=== PATIENT | female | born 1950 | race Caucasian/White ===

== ENCOUNTER 2022-12-30 12:01 | Emergency (ER) | payer MEDICARE, SELFPAY ==
[2022-12-30] VITALS (33 sets, daily range): BP systolic 80–139; BP diastolic 20–122; PULSE 65–99; RESP 11–24; TEMP 36.4; O2SAT 93–100
--- NOTE | 2022-12-30 11:45 | DI.RAD_ITS ---
Exam(s) XR CHEST 2V PA LATERAL EXAM: XR CHEST 2V PA LATERAL CLINICAL HISTORY: CP TECHNIQUE: 2D digital imaging was performed of the chest. Two images were obtained. PA and lateral views were obtained. COMPARISON: CR PORTABLE CHEST ONE VIEW from 11/27/2017 FINDINGS: MEDIASTINUM: Normal. HEART: Normal. PULMONARY VASCULATURE: Normal. LUNGS: Clear. PLEURAL SPACE: No pleural effusion or pneumothorax. BONE:Within normal limits for the patient's age. OTHER FINDINGS:Normal. IMPRESSION: No acute pulmonary findings. DATA REPOSITORY: RADIATION DOSE DELIVERED:
--- NOTE | 2022-12-30 11:45 | RT.EKG_ITS ---
APPROVED REPORT Exam: Resting ECG Reason for Exam: Patient Location: E HR:77 bpm ECG Measurements Heart Rate 77 AXIS NM 179 P 46 QRSd 86 QRS 18 QT 404 T 104 QTc 457 Conclusion Sinus rhythm...normal P axis, V-rate 60- 99 Nonspecific T abnormalities, lateral leads...T <-0.10mV, I aVL V5 V6 Narrow complex normal sinus rhythm at a rate of 77. Normal axis. Intervals within normal limits. N o ST segment abnormalities. No T wave inversions. T wave flattening in aVL. No acute injury ramoneter n. No prior for comparison.
--- NOTE | 2022-12-30 11:57 | ED.GENADUL_ITS ---
Discharge Plan Disposition Patient Disposition: Home Condition: Stable Discharge Details Clinical Impression: UTI (urinary tract infection), Gastroenteritis Primary Care Provider: Peng Villegas ED Provider: Merlin Herr Home Meds and New Rx's Prescriptions: New cefpodoxime 200 mg tablet 200 mg PO BID Qty: 10 0RF Rx Instructions: must administer with a meal/food Continued donepezil 10 MG tablet 10 mg PO DAILY venlafaxine 100 MG tablet 150 mg PO DAILY Patient Comments: willian stated patient not taking gabapentin 300 MG capsule 200 mg PO BID aspirin [Aspirin Low-Strength] 81 MG tablet,chewable 81 mg PO DAILY lorazepam 1 MG tablet 1 mg PO PRN PRN Patient Comments: stated patient not taking memantine [Namenda] 10 MG tablet 10 mg PO BID alendronate 70 mg Tablet 70 mg PO DAILY chlorpheniramine-pseudoephed 4-60 mg Tablet 1 tab PO DAILY cyanocobalamin-liver extract Tablet 1 tab PO DAILY Discharge Instructions Instructions: Urinary Tract Infection in Women (DC), Gastroenteritis (DC) Additional Instructions: clear liquids, advance diet as tolerated Referrals: Peng Villegas [Primary Care Provider] - Medical Decision Making <BRENT Lundberg - Last Filed: 12/30/22 19:35> Patient is a pleasant 72-year-old female brought in via EMS with concern for nausea, vomiting and chest discomfort. Patient has baseline dementia per her EMS and they report that she is largely nonverbal. They report that her called due to her having nausea and vomiting since 7 AM and reported that she has been clutching her chest. She has been nonverbal with the during this time. Per EMS, patient was hemodynamically stable. She has not received anything as of yet for nausea or vomiting. She did not take her morning meds. Patient is able to answer yes/no and 1 answer questions for me currently. EMS did report that she has fluctuations in her mentation and ability to speak with her . She indicates the upper aspect of her chest is areas where she had discomfort but that she is not having pain now. She does report that she is nauseated. She denies pain anywhere at this time. On exam, patient appears chronically ill, frail and dehydrated. Lungs are clear, normal cardiac exam. She is denying any pain at this time. No lower extremity edema. 2+ distal pulses. Abdomen is nontender. Consider potential ACS, gastroenteritis, infectious etiology versus other. She not having any active pain to suggest dissection. She does not have history of DVT, has been mobile per her normal and is not tachycardic or hypoxic. Do not see evidence at this time for pulmonary embolism. History exam are limited secondary to patient's known Alzheimer's. Spoke with patient's to advises that her Alzheimer's has been worsening in recent months. Now she is unable to shower by herself primarily because she does not want to shower and he has to assist her with this. Otherwise, she is ambulatory and active with monitoring but no physical assistance needed. They typically reside in [place] and are planning to go back in January or February. ECG reviewed by Dr. Blankenship. No acute ischemic pattern noted. FINDINGS: Lungs: Unremarkable. No consolidation. Pleural spaces: Unremarkable. No pleural effusion. No pneumothorax. Heart/Mediastinum: Unremarkable. No cardiomegaly. Bones/joints: There are mild degenerative changes of the osseous structures. IMPRESSION: No acute cardiopulmonary disease.? No definite rib fracture or pneumothorax/pleural reaction to suggest a rib fracture. Patient is receiving fluids and antiemetic. Labs significant for leukocytosis with a white count of 23 which is significantly elevated to baseline from 2018. Patient is not anemic. Platelet count is normal. No bandemia. Will obtain a lactate. Her creatinine is elevated at 1.3, up from the patient's baseline. No significant electrolyte abnormality. Troponin within normal limits. Will obtain a urine specimen. Concern for potential UTI. With the vomiting also considered intra-abdominal infection or pyelonephritis. X-ray without evidence of pneumonia. She not had any cough or fevers. Will obtain abdominal CT, cultures and lactate. Holding off on abx until more definitive infectious source is identified. Urine concerning for infection with positive nitrite, small leuks and many bacteria. Will start IV ceftriaxone. At the end of my shift, care transitioned to Diego Herr NP with imaging and disposition pending. 1545-received signout from BRENT Lundberg. Patient pending CT imaging results otherwise noted to be in stable condition. [id number]- <Merlin Herr NP - Last Filed: 12/30/22 21:54> Patient is a pleasant 72-year-old female brought in via EMS with concern for nausea, vomiting and chest discomfort. Patient has baseline dementia per her EMS and they report that she is largely nonverbal. They report that her called due to her having nausea and vomiting since 7 AM and reported that she has been clutching her chest. She has been nonverbal with the during this time. Per EMS, patient was hemodynamically stable. She has not received anything as of yet for nausea or vomiting. She did not take her morning meds. Patient is able to answer yes/no and 1 answer questions for me currently. EMS did report that she has fluctuations in her mentation and ability to speak with her . She indicates the upper aspect of her chest is areas where she had discomfort but that she is not having pain now. She does report that she is nauseated. She denies pain anywhere at this time. On exam, patient appears chronically ill, frail and dehydrated. Lungs are clear, normal cardiac exam. She is denying any pain at this time. No lower extremity edema. 2+ distal pulses. Abdomen is nontender. Consider potential ACS, gastroenteritis, infectious etiology versus other. She not having any active pain to suggest dissection. She does not have history of DVT, has been mobile per her normal and is not tachycardic or hypoxic. Do not see evidence at this time for pulmonary embolism. History exam are limited secondary to patient's known Alzheimer's. Spoke with patient's to advises that her Alzheimer's has been worsening in recent months. Now she is unable to shower by herself primarily because she does not want to shower and he has to assist her with this. Otherwise, she is ambulatory and active with monitoring but no physical assistance needed. They typically reside in [place] and are planning to go back in January or February. ECG reviewed by Dr. Blankenship. No acute ischemic pattern noted. FINDINGS: Lungs: Unremarkable. No consolidation. Pleural spaces: Unremarkable. No pleural effusion. No pneumothorax. Heart/Mediastinum: Unremarkable. No cardiomegaly. Bones/joints: There are mild degenerative changes of the osseous structures. IMPRESSION: No acute cardiopulmonary disease.? No definite rib fracture or pneumothorax/pleural reaction to suggest a rib fracture. Patient is receiving fluids and antiemetic. Labs significant for leukocytosis with a white count of 23 which is significantly elevated to baseline from 2018. Patient is not anemic. Platelet count is normal. No bandemia. Will obtain a lactate. Her creatinine is elevated at 1.3, up from the patient's baseline. No significant electrolyte abnormality. Troponin within normal limits. Will obtain a urine specimen. Concern for potential UTI. With the vomiting also considered intra-abdominal infection or pyelonephritis. X-ray without evidence of pneumonia. She not had any cough or fevers. Will obtain abdominal CT, cultures and lactate. Holding off on abx until more definitive infectious source is identified. Urine concerning for infection with positive nitrite, small leuks and many bacteria. Will start IV ceftriaxone. At the end of my shift, care transitioned to Diego Herr NP with imaging and disposition pending. 1545-received signout from BRENT Lundberg. Patient pending CT imaging results otherwise noted to be in stable condition. 1625-reviewed CT imaging that showed possible cystitis but otherwise had findings of duodenitis and possible small bowel ileus pattern with no true transition point with narrowed lumen wall edema but no surrounding mesenteric stranding. Discussed this with general surgeon who was not concerned but there is concern by the previous present provider and myself due to elevated white count and findings of cystitis. Discussed with and patient concern for need of admission for further antibiotics and monitoring. Spoke with Dr. Erickson who agreed to admit patient to hospitalist service. Of note once patient was admitted to hospital service and accepted hospital medicine [employer] SERVICE RUNNER came down to see and evaluate patient and and changed their mind and decided to be discharged home. Please see hospital medicine medicine note for that discussion and plan of care. Imaging Data Radiologic Study: Imaging: CT Scan Radiologist's impression: Exam(s) PROCEDURE INFORMATION: Exam: CT Abdomen And Pelvis With Contrast Exam date and time: 12/30/2022 3:44 PM Age: 72 years old Clinical indication: Vomiting and other: HX of ibs, leukocytosis, TECHNIQUE: Imaging protocol: Computed tomography of the abdomen and pelvis with contrast. Contrast material: 350; Contrast volume: 100 ml; Contrast route: INTRAVENOUS (IV); COMPARISON: CR XR CHEST 2V PA LATERAL 12/30/2022 12:42 PM FINDINGS: Lungs: Ground-glass opacities in the lung bases consistent with subsegmental atelectasis. Liver: Normal. No mass. Gallbladder and bile ducts: The gallbladder is contracted/decompressed. There is no common bile duct dilation. Pancreas: Normal. No ductal dilation. Spleen: Normal. No splenomegaly. Adrenal glands: Normal. No mass. Kidneys and ureters: Normal. No hydronephrosis. Stomach and bowel: The stomach has a qbwthabv-gf-zchzn amount of fluid within it. There is no wall thickening. There is thickening and edema of the duodenal wall. No ulcerations. The mid small bowel loops show air and fluid throughout most of the small bowel. The distal portion of the small bowel has luminal narrowing and thickening of the wall worrisome for focal enteritis. There is no surrounding edema. The colon has very little fluid within it. There are colonic diverticula predominantly in the sigmoid portion of the colon. Appendix: No evidence of appendicitis. Intraperitoneal space: Unremarkable. No free air. No significant fluid collection. Vasculature: Small amount of calcified plaque within the aorta. No abdominal aortic aneurysm. Lymph nodes: Unremarkable. No enlarged lymph nodes. Urinary bladder: The urinary bladder has a small amount of fluid within it. The wall is thickened and there is stranding within the adjacent fat worrisome for cystitis. Reproductive: There has been a hysterectomy. Bones/joints: The vertebral body heights and intervertebral disc spaces are maintained. No spinal stenosis. There is moderate facet arthropathy. The sacroiliac joints are patent. Soft tissues: Unremarkable. IMPRESSION: 1. Possible duodenitis where there is thickening of the duodenal wall and edema with large quantity of fluid and air in the stomach. 2. Small bowel ileus pattern. There is no true transition point although the distal small bowel has a narrowed lumen wall edema but no surrounding mesenteric stranding. 3. Possible cystitis. 4. Uncomplicated colonic diverticulosis. Lab Data Lab results reviewed: Yes I reviewed the patient's lab results. HPI <BRENT Lundberg - Last Filed: 12/30/22 19:35> General Date/Time Provider Initiated Documentation: 12/30/22 12:10 . Limitations to Documentation: altered mental status (hx of Alzheimers) . Information obtained by: patient, family (), EMS and RN notes reviewed . History of Present Illness 72 year old F presents to the emergency department with the chief complaint of nausea, vomiting, chest discomfort, described as mild, and is localized to the chest. Patient reports no radiation. Patient started experiencing this hour(s) and it has been now resolved. No relieving factors improve symptom(s), No exacerbating factors reported . Patient notes chest pain, loss of appetite, malaise and nausea/vomiting; denies cough, fever/chills, headaches, rash and shortness of breath. Patient did receive the following treatments prior to arrival, none Related Data Home Medications Medication Instructions Recorded Confirmed aspirin 81 mg chewable tablet 81 mg PO DAILY 11/27/17 12/30/22 (Aspirin Low-Strength) donepezil 10 mg tablet 10 mg PO DAILY 11/27/17 12/30/22 gabapentin 300 mg capsule 200 mg PO BID 11/27/17 12/30/22 lorazepam 1 mg tablet 1 mg PO PRN PRN 11/27/17 11/27/17 memantine 10 mg tablet (Namenda) 10 mg PO BID 11/27/17 12/30/22 venlafaxine 100 mg tablet 150 mg PO DAILY 11/27/17 11/27/17 alendronate 70 mg tablet 70 mg PO DAILY 12/30/22 12/30/22 cefpodoxime 200 mg tablet 200 mg PO BID #10 tabs 12/30/22 chlorpheniramine-pseudoephedrine 4 1 tab PO DAILY 12/30/22 12/30/22 mg-60 mg tablet cyanocobalamin-liver extract tablet 1 tab PO DAILY 12/30/22 Previous Rx's Medication Instructions Recorded cefpodoxime 200 mg tablet 200 mg PO BID #10 tabs 12/30/22 Allergies Allergy/AdvReac Type Severity Reaction Status Date / Time amitriptyline Allergy unknown Unverified 12/30/22 14:33 codeine Allergy unknown Unverified 12/30/22 14:33 dicyclomine Allergy unknown Unverified 12/30/22 14:33 pregabalin [From Lyrica] Allergy Unverified 12/30/22 13:33 General Stated Complaint: Nausea/Vomit/Diar LIZBETH: 3 Review of Systems <BRENT Lundberg - Last Filed: 12/30/22 19:35> Narrative: ROS limited, unreliable d/t medical history PFS <BRENT Lundberg - Last Filed: 12/30/22 19:35> All Active Problems (Updated 12/30/22 @ 18:22 by Maura Cantrell NP) Gastroenteritis (Acute) Altered mental status (Acute) Discharge planning issues (Acute) On deep vein thrombosis (DVT) prophylaxis (Acute) Dementia (Chronic) UTI (urinary tract infection) (Acute) Social History Smoking risk assessment performed?: No Exam <BRENT Lundberg Last Filed: 12/30/22 19:35> Const General: cooperative, comfortable, no acute distress, well developed, frail appearing and ill appearing chronically Nutritional Appearance: average body habitus and well nourished Orientation: alert and awake [facility] Head: normal to inspection Chest Chest: normal inspection of the chest, normal palpation of entire chest wall and no crepitus Resp Effort & Inspection: normal respiratory effort, able to speak in complete sentences and no respiratory distress Auscultation: clear to auscultation bilaterally, no rales, no rhonchi and no wheezes Cardio Rate: regular rate Rhythm: regular rhythm Heart Sounds: S1 normal and S2 normal GI Inspection: normal to inspection, no edema and non-distended Palpation: soft, no guarding and nontender Auscultation: normal bowel sounds Back/Spine/Pelvis Back: no CVA tenderness Skin General skin exam: no rashes or lesions noted Trauma: no lacerations or abrasions Neuro General: patient alert and patient awake Extrem General: normal to inspection, capillary refill normal, no pedal edema and no calf tenderness Course <BRENT Lundberg Last Filed: 12/30/22 19:35> Vital Signs Vital signs: Vital Signs Temperature 36.4 C L 12/30/22 11:51 Pulse 88 12/30/22 11:51 Respiratory Rate 16 12/30/22 11:51 Blood Pressure 131/69 12/30/22 11:51 Pulse Oximetry 96 12/30/22 11:51 Temperature 36.4 C L 12/30/22 11:51 Temperature Source Temporal Artery Scan 12/30/22 11:51 Pulse 88 12/30/22 11:51 Respiratory Rate 16 12/30/22 11:51 Blood Pressure 131/69 12/30/22 11:51 Blood Pressure Position Sitting 12/30/22 11:51 Pulse Oximetry 96 12/30/22 11:51 Oxygen Delivery Method Room Air 12/30/22 11:51 Oxygen Flow Rate 0 12/30/22 11:51 Sign Out <BRENT Lundberg Last Filed: 12/30/22 19:35> Sign Out Data: Sign Out Comment: Care transitioned to Diego Herr NP with imaging pending. UTI and leukocytosis. Patient has alzheimers and concerned for difficulty express sxs, evaluating for possible obstruction and pyelonephritis. In CT now. Last updated by Tanna King PA at 12/30/22 15:44
[2022-12-30] MEDS: Aspirin 81 MG CHEW 324 MG CH (12:53)
[2022-12-30 12:56] LABS: Abs Immature Grans 0.12 10^3/uL (0.0-0.06); Absolute Neutrophil Count 21.61 10^3/uL (1.2-6.7); Basophils % 0.5; Eosinophils % 0.1; HCT 46.6 % (36.0-46.0); HGB 15.7 g/dL (11.2-15.7); Immature Grans % 0.5; Lymphocytes % 2.9; MCH 30.8 pg (27.0-33.0); MCHC 33.7 % (32.0-36.0); MCV 91 fL (80-95); MPV 9.2 fL (8.0-11.0); Platelet Count 213 10^3/uL (130-400); RDW 12.4 % (11.7-14.6); RDW-SD 41.1 fL; WBC 23.49 10^3/uL (4.4-10.8)
[2022-12-30 12:57] LABS: Absolute Basophil Count 0.12 10^3/uL (0.0-0.2); Absolute Eosinophil Count 0.02 10^3/uL (0.0-0.7); Absolute Lymphocyte Count 0.68 10^3/uL (1.2-3.4); Absolute Monocyte Count 0.94 10^3/uL (0.1-0.8)
--- NOTE | 2022-12-30 13:01 | DI.VRAD_ITS ---
PROCEDURE INFORMATION: Exam: XR Chest Exam date and time: 12/30/2022 12:42 PM Age: 72 years old Clinical indication: Other: Chect pain TECHNIQUE: Imaging protocol: Radiologic exam of the chest. Views: 2 views. COMPARISON: SC PORTABLE CHEST ONE VIEW 11/27/2017 4:12 PM FINDINGS: Lungs: Unremarkable. No consolidation. Pleural spaces: Unremarkable. No pleural effusion. No pneumothorax. Heart/Mediastinum: Unremarkable. No cardiomegaly. Bones/joints: There are mild degenerative changes of the osseous structures. IMPRESSION: No acute cardiopulmonary disease. No definite rib fracture or pneumothorax/pleural reaction to suggest a rib fracture. Dictated and Authenticated by: Bird Jaquez MD. Ordering:GRANT Cisse MD
[2022-12-30 13:09] LABS: ALT 30 U/L (14-59); AST 27 U/L (15-37); Albumin 3.7 g/dL (3.4-5.0); Alkaline Phosphatase 82 U/L (46-116); BUN 14 mg/dL (7-18); Bilirubin, Total 0.6 mg/dL (0.2-1.0); CREATININE 1.3 mg/dL (0.55-1.02); Calcium 9.5 mg/dL (8.5-10.1); Chloride 105 mmol/L (98-107); Estimated GFR 43.69 (mL/min/1.73m2); Glucose 120 mg/dL (74-106); Lipase 51 U/L (16-77); Magnesium 2.3 mg/dL (1.8-2.4); Potassium 3.8 mmol/L (3.5-5.1); Sodium 143 mmol/L (136-145); Total Protein 7.8 g/dL (6.4-8.2); Troponin I < 50 ng/L (<or=60)
[2022-12-30 13:13] LABS: Diff Comment Agrees w/ Instrument; RBC Morphology Normal
--- NOTE | 2022-12-30 13:15 | DI.CT_ITS ---
Exam(s) CT ABDOMEN PELVIS W EXAM: CT ABDOMEN PELVIS W CLINICAL HISTORY: leukocytosis, vomiting, hx ibs and alzheimers TECHNIQUE: Imaging Protocol: Axial computed tomography images with coronal and sagittal reformatted images were created and reviewed CONTRAST MATERIAL: Intravenous: Omnipaque 350 Contrast volume:100 mL Oral: No COMPARISON: No exams were available for comparison FINDINGS: The examination is limited due to patient motion artifact. ABDOMEN: Lung Bases: There is mild dependent atelectasis. Liver: Normal density. No measurable mass. Portal, Superior Mesenteric, and Splenic Veins: Unremarkable. Gallbladder and Biliary Tract: No radiodense calculus or dilation. Pancreas: Normal density, no abnormal calcifications or inflammatory process. Spleen: Normal. Adrenals: No masses seen. Kidneys: There is atrophy of the left kidney. Bilateral renal cysts are seen. No follow-up is recom mended. No radiodense stones or obstructive uropathy. No suspicious masses are present. Abdominal Aorta: Abdominal portion non-dilated. Atherosclerosis. Bowel: There is diverticulosis of the colon, but no evidence of acute diverticulitis. Appendix is un remarkable. There is mild wall thickening seen in a portion of the distal small bowel. There is also mild thickening along of the wall of the duodenum. Peritoneal Cavity: No ascites, collection or mesenteric inflammatory response. No free air. Lymph Nodes: Within normal limits. Bones: Within normal limits for the patient's age. Soft Tissues: Unremarkable. PELVIS: Bladder: There is diffuse thickening of the wall of the urinary bladder. Reproductive Organs: Patient is status post hysterectomy. Lymph Nodes: Within normal limits. Bones: Within normal limits for the patient's age. IMPRESSION: 1. Wall thickening seen in the duodenum suspicious for duodenitis. 2. Mild distention and wall thickening seen in the small bowel which may represent ileus. Enteritis should also be considered. 3. Thickening of the wall of the urinary bladder which may be due to underdistention but cystitis can not be excluded. Please correlate clinically. RADIATION DOSE DELIVERED: 688.19mGy.cm Total DLP DATA REPOSITORY: All CT scans at this facility are submitted to the National Radiology Data Registry (NRDR) Dose Index Registry (DIR) with the [employer] (A[employer]). RADIATION OPTIMIZATION: All CT scans at this facility use at least one of these dose optimization te chniques: automated exposure control; mA and/or kV adjustment per patient size (includes targeted exa ms where dose is matched to clinical indication); or iterative reconstruction.
[2022-12-30] MEDS: Lactated Ringers 1,000 ML 1000 ML IV (13:37)
[2022-12-30 14:20] LABS: Bilirubin Negative (Negative); Blood Negative (Negative); Clarity Sl Cloudy (Clear); Glucose Negative (Negative); Ketones Trace mg/dL (Negative); Leukocyte Esterase Small (Negative); Nitrite Positive (Negative); Urobilinogen 0.2 mg/dL (Up to 0.2); pH 5.5 (5-8)
[2022-12-30 14:31] LABS: Bacteria Many HPF (Negative); C & S Indicated? Yes; Casts Negative LPF (Negative); Crystals Negative HPF (Negative); Epithelial Cells Few HPF (Negative); Mucus Negative (Negative); RBC 0-2 HPF (0-2)
[2022-12-30 14:33] LABS: Source Nasal/Nares
[2022-12-30 15:04] LABS: COVID-19 PCR Negative (Negative)
[2022-12-30 15:16] LABS: Lactate 1.6 mmol/L (0.6-1.4)
[2022-12-30] MEDS: cefTRIAXone 1 GM/50 ML BAG IVPB (15:34)
[2022-12-30 15:38] LABS: Troponin I < 50 ng/L (<or=60)
[2022-12-30] MEDS: Omnipaque 350 MG/ML 100 ML BTL IJ (15:42)
[2022-12-30] MEDS: Normal Saline - Diluent 50 ML VIAL IJ (15:57)
--- NOTE | 2022-12-30 16:21 | DI.VRAD_ITS ---
PROCEDURE INFORMATION: Exam: CT Abdomen And Pelvis With Contrast Exam date and time: 12/30/2022 3:44 PM Age: 72 years old Clinical indication: Vomiting and other: HX of ibs, leukocytosis, TECHNIQUE: Imaging protocol: Computed tomography of the abdomen and pelvis with contrast. Contrast material: 350; Contrast volume: 100 ml; Contrast route: INTRAVENOUS (IV); COMPARISON: CR XR CHEST 2V PA LATERAL 12/30/2022 12:42 PM FINDINGS: Lungs: Ground-glass opacities in the lung bases consistent with subsegmental atelectasis. Liver: Normal. No mass. Gallbladder and bile ducts: The gallbladder is contracted/decompressed. There is no common bile duct dilation. Pancreas: Normal. No ductal dilation. Spleen: Normal. No splenomegaly. Adrenal glands: Normal. No mass. Kidneys and ureters: Normal. No hydronephrosis. Stomach and bowel: The stomach has a mjjcugan-tj-aswsn amount of fluid within it. There is no wall thickening. There is thickening and edema of the duodenal wall. No ulcerations. The mid small bowel loops show air and fluid throughout most of the small bowel. The distal portion of the small bowel has luminal narrowing and thickening of the wall worrisome for focal enteritis. There is no surrounding edema. The colon has very little fluid within it. There are colonic diverticula predominantly in the sigmoid portion of the colon. Appendix: No evidence of appendicitis. Intraperitoneal space: Unremarkable. No free air. No significant fluid collection. Vasculature: Small amount of calcified plaque within the aorta. No abdominal aortic aneurysm. Lymph nodes: Unremarkable. No enlarged lymph nodes. Urinary bladder: The urinary bladder has a small amount of fluid within it. The wall is thickened and there is stranding within the adjacent fat worrisome for cystitis. Reproductive: There has been a hysterectomy. Bones/joints: The vertebral body heights and intervertebral disc spaces are maintained. No spinal stenosis. There is moderate facet arthropathy. The sacroiliac joints are patent. Soft tissues: Unremarkable. IMPRESSION: 1. Possible duodenitis where there is thickening of the duodenal wall and edema with large quantity of fluid and air in the stomach. 2. Small bowel ileus pattern. There is no true transition point although the distal small bowel has a narrowed lumen wall edema but no surrounding mesenteric stranding. 3. Possible cystitis. 4. Uncomplicated colonic diverticulosis. Dictated and Authenticated by: Bird Jaquez MD. Ordering:GRANT Cisse MD
--- NOTE | 2022-12-30 17:07 | W.PM.HP.N ---
Date of service: 12/30/22 Time of Service: 17:07 Assessment and Plan Assessment and plan (1) Altered mental status: Status: Acute (2) UTI (urinary tract infection): Status: Acute Assessment and plan: admit to med/surg continue ceftriaxone 1 gm day 06/15 while cultures pending (3) Gastroenteritis: Status: Acute Assessment and plan: clear liquids, advance as tolerated (4) Dementia: Status: Chronic Assessment and plan: continue home medication anticipate acute delirium in setting of infection and new environment. maintain safety precautions (5) On deep vein thrombosis (DVT) prophylaxis: Status: Acute Assessment and plan: enoxaparin (6) Discharge planning issues: Status: Acute Assessment and plan: case management following. discussed with DR Erickson History of Present Illness History of Present Illness Chief Complaint: increased confusion Narrative: presented to the ED with c/o increased confusion, work up shows UTI, she was started on ceftriaxone and was to be admitted to med/surg for further management. after evaluation and discussion with and as patient requesting discharge it was felt it was reasonable to discharge with outpatient treatment for UTI with cefpodoxime. please see discharge instructions, this will serve as H&P and discharge summary Review of Systems All systems reviewed & are unremarkable except as noted in HPI and below PFSH All Active Problems (Updated 12/30/22 @ 23:28 by Merlin Herr NP) Abdominal pain (Acute) Gastroenteritis (Acute) Altered mental status (Acute) Discharge planning issues (Acute) On deep vein thrombosis (DVT) prophylaxis (Acute) Dementia (Chronic) UTI (urinary tract infection) (Acute) Social History Smoking/Tobacco Use Status: Former Tobacco Use Smoking risk assessment performed?: Yes Meds Allergies and Home Medications Allergies Allergy/AdvReac Type Severity Reaction Status Date / Time amitriptyline Allergy unknown Unverified 12/30/22 21:59 codeine Allergy unknown Unverified 12/30/22 21:59 dicyclomine Allergy unknown Unverified 12/30/22 21:59 pregabalin [From Lyrica] Allergy Unverified 12/30/22 21:59 Home Medications Medication Instructions Recorded Confirmed Type aspirin 81 mg chewable tablet 81 mg PO DAILY 11/27/17 12/30/22 History (Aspirin Low-Strength) donepezil 10 mg tablet 10 mg PO HS 11/27/17 12/31/22 History gabapentin 300 mg capsule 200 mg PO HS 11/27/17 12/31/22 History lorazepam 1 mg tablet 1 mg PO PRN PRN 11/27/17 12/30/22 History memantine 10 mg tablet (Namenda) 10 mg PO BID 11/27/17 12/30/22 History venlafaxine 100 mg tablet 150 mg PO HS 11/27/17 11/27/17 History alendronate 70 mg tablet 70 mg PO DAILY 12/30/22 12/30/22 History cefpodoxime 200 mg tablet 200 mg PO BID #10 tabs 12/30/22 12/30/22 Rx chlorpheniramine-pseudoephedrine 4 1 tab PO DAILY 12/30/22 12/30/22 History mg-60 mg tablet cyanocobalamin-liver extract tablet 1 tab PO DAILY 12/30/22 12/30/22 History atogepant 30 mg tablet (Qulipta) 30 mg PO DAILY 12/31/22 12/31/22 History Results Labs 12/30/22 12:30 12/30/22 12:30 Labs: Laboratory Results - last 24 hr 12/30/22 12/30/22 12/30/22 12:30 12:30 14:05 WBC 23.49 H RBC 5.10 Hgb 15.7 Hct 46.6 H MCV 91 MCH 30.8 MCHC 33.7 RDW 12.4 Plt Count 213 MPV 9.2 Immature Gran % 0.5 Neutrophils % 92.0 Lymphocytes % 2.9 Monocytes % 4.0 Eosinophils % 0.1 Basophils % 0.5 Nucleated RBC % 0.0 Absolute Neutrophils 21.61 H Absolute Lymphocytes 0.68 L Absolute Monocytes 0.94 H Absolute Eosinophils 0.02 Absolute Basophils 0.12 RBC Morphology Normal VBG Lactate Sodium 143 Potassium 3.8 Chloride 105 Carbon Dioxide 31.0 Anion Gap 7.0 BUN 14 Creatinine 1.3 H Est GFR (CKD-EPI 2020) 43.69 Glucose 120 H Calcium 9.5 Magnesium 2.3 Total Bilirubin 0.6 AST 27 ALT 30 Alkaline Phosphatase 82 Troponin I < 50 Total Protein 7.8 Albumin 3.7 Lipase 51 Urine Color Yellow Urine Clarity Sl Cloudy Urine pH 5.5 Ur Specific [place] 1.020 Urine Protein Negative Urine Ketones Trace H Urine Blood Negative Urine Nitrite Positive H Urine Bilirubin Negative Urine Urobilinogen 0.2 Ur Leukocyte Esterase Small H Urine RBC 0-2 Urine WBC 5-10 Ur Epithelial Cells Few Urine Crystals Negative Urine Bacteria Many Urine Casts Negative Urine Mucus Negative Ur Culture Indicated? Yes Urine Glucose Negative COVID-19 Source SARS-CoV-2 (PCR) 12/30/22 12/30/22 12/30/22 14:20 15:05 15:05 WBC RBC Hgb Hct MCV MCH MCHC RDW Plt Count MPV Immature Gran % Neutrophils % Lymphocytes % Monocytes % Eosinophils % Basophils % Nucleated RBC % Absolute Neutrophils Absolute Lymphocytes Absolute Monocytes Absolute Eosinophils Absolute Basophils RBC Morphology VBG Lactate 1.6 H Sodium Potassium Chloride Carbon Dioxide Anion Gap BUN Creatinine Est GFR (CKD-EPI 2020) Glucose Calcium Magnesium Total Bilirubin AST ALT Alkaline Phosphatase Troponin I < 50 Total Protein Albumin Lipase Urine Color Urine Clarity Urine pH Ur Specific [place] Urine Protein Urine Ketones Urine Blood Urine Nitrite Urine Bilirubin Urine Urobilinogen Ur Leukocyte Esterase Urine RBC Urine WBC Ur Epithelial Cells Urine Crystals Urine Bacteria Urine Casts Urine Mucus Ur Culture Indicated? Urine Glucose COVID-19 Source Nasal/Nares SARS-CoV-2 (PCR) Negative Last Vital Signs Temp 36.4 C L 12/30/22 11:51 Pulse 66 12/30/22 16:30 Resp 13 12/30/22 16:40 BP 139/122 H 12/30/22 16:30 Pulse Ox 93 12/30/22 16:10 Time Spent Time spent with Patient: 55-74 minutes Time was spent: preparing to see the patient(eg.review tests), obtaining and/or reviewing separately otained hiistory, ordering medications,tests, procedures, indepentently interpreting results and counseling the patient ()
--- NOTE | 2022-12-30 18:22 | DSE_ITS ---
Date of service: 12/30/22 Time of Service: 18:22 DS: Diagnosis Discharge Diagnosis (1) Altered mental status: Status: Acute (2) UTI (urinary tract infection): Status: Acute (3) Dementia: Status: Chronic Discharge Plan Disposition Patient Disposition: Home Condition: Stable Discharge Details Clinical Impression: UTI (urinary tract infection), Gastroenteritis Primary Care Provider: Peng Villegas ED Provider: Merlin Herr Home Meds and New Rx's Prescriptions: New cefpodoxime 200 mg tablet 200 mg PO BID Qty: 10 0RF Rx Instructions: must administer with a meal/food Continued donepezil 10 MG tablet 10 mg PO HS venlafaxine 100 MG tablet 150 mg PO HS Patient Comments: eliseoaband stated patient not taking gabapentin 300 MG capsule 200 mg PO HS aspirin [Aspirin Low-Strength] 81 MG tablet,chewable 81 mg PO DAILY lorazepam 1 MG tablet 1 mg PO PRN PRN Patient Comments: stated patient not taking memantine [Namenda] 10 MG tablet 10 mg PO BID alendronate 70 mg Tablet 70 mg PO DAILY chlorpheniramine-pseudoephed 4-60 mg Tablet 1 tab PO DAILY cyanocobalamin-liver extract Tablet 1 tab PO DAILY No Action Qulipta 30 mg Tablet 30 mg PO DAILY Discharge Instructions Instructions: Urinary Tract Infection in Women (DC), Gastroenteritis (DC) Additional Instructions: clear liquids, advance diet as tolerated Referrals: Peng Villegas [Primary Care Provider] - Discharge Data Discharge Date/Time-TO BE ENTERED AT DEPARTURE: 12/30/22 18:42 DS: Summary Time Spent with Patient providing and/or coordinating discharge services: Greater than 30 minutes Status at Discharge Functional status at discharge: independent ambulation Overall status at discharge: patient is progressing back to baseline Mental Status: other Speech and Movement: speech and movement normal Mood: congruent mood and other Affect: normal affect Exam Psych Mental Status: other Speech and Movement: speech and movement normal Mood: congruent mood and other Affect: normal affect DS: Data Vitals/I&O Vitals and I&O: Vital Signs Temperature 36.4 C L 12/30/22 18:11 Temperature Source Temporal Artery Scan 12/30/22 11:51 Pulse 74 12/30/22 18:11 Pulse 68 12/30/22 17:50 Respiratory Rate 17 12/30/22 18:11 Respiratory Effort Normal 12/30/22 14:54 Blood Pressure 104/77 12/30/22 18:11 Blood Pressure Mean 83 12/30/22 18:01 Blood Pressure Position Sitting 12/30/22 11:51 Pulse Oximetry 96 12/30/22 18:11 Oxygen Delivery Method Room Air 12/30/22 11:51 Oxygen Flow Rate 0 12/30/22 11:51 Pain Level 0 12/30/22 18:11 Intake & Output 12/29/22 12/30/22 12/30/22 23:59 11:59 23:59 Intake Total 1060 / 1060 Output Total 100 / 100 Balance 960 / 960 Weight 53.7 kg 53.7 kg Intake: IV 1060 / 1060 Output: Urine 100 / 100 Other: Urine Color Light Wendy Urine Appearance Cloudy Data Completed and Pending Labs on day of discharge: Labs from last 24 hours 12/30/22 12/30/22 12/30/22 20:00 15:05 15:05 WBC RBC Hgb Hct MCV MCH MCHC RDW Plt Count MPV Immature Gran % Neutrophils % Lymphocytes % Monocytes % Eosinophils % Basophils % Nucleated RBC % Absolute Neutrophils Absolute Lymphocytes Absolute Monocytes Absolute Eosinophils Absolute Basophils RBC Morphology VBG Lactate Pending 1.6 H Sodium Potassium Chloride Carbon Dioxide Anion Gap BUN Creatinine Est GFR (CKD-EPI 2020) Glucose Calcium Magnesium Total Bilirubin AST ALT Alkaline Phosphatase Troponin I < 50 Total Protein Albumin Lipase Urine Color Urine Clarity Urine pH Ur Specific [place] Urine Protein Urine Ketones Urine Blood Urine Nitrite Urine Bilirubin Urine Urobilinogen Ur Leukocyte Esterase Urine RBC Urine WBC Ur Epithelial Cells Urine Crystals Urine Bacteria Urine Casts Urine Mucus Ur Culture Indicated? Urine Glucose COVID-19 Source SARS-CoV-2 (PCR) 12/30/22 12/30/22 12/30/22 14:20 14:05 12:30 WBC 23.49 H RBC 5.10 Hgb 15.7 Hct 46.6 H MCV 91 MCH 30.8 MCHC 33.7 RDW 12.4 Plt Count 213 MPV 9.2 Immature Gran % 0.5 Neutrophils % 92.0 Lymphocytes % 2.9 Monocytes % 4.0 Eosinophils % 0.1 Basophils % 0.5 Nucleated RBC % 0.0 Absolute Neutrophils 21.61 H Absolute Lymphocytes 0.68 L Absolute Monocytes 0.94 H Absolute Eosinophils 0.02 Absolute Basophils 0.12 RBC Morphology Normal VBG Lactate Sodium Potassium Chloride Carbon Dioxide Anion Gap BUN Creatinine Est GFR (CKD-EPI 2020) Glucose Calcium Magnesium Total Bilirubin AST ALT Alkaline Phosphatase Troponin I Total Protein Albumin Lipase Urine Color Yellow Urine Clarity Sl Cloudy Urine pH 5.5 Ur Specific [place] 1.020 Urine Protein Negative Urine Ketones Trace H Urine Blood Negative Urine Nitrite Positive H Urine Bilirubin Negative Urine Urobilinogen 0.2 Ur Leukocyte Esterase Small H Urine RBC 0-2 Urine WBC 5-10 Ur Epithelial Cells Few Urine Crystals Negative Urine Bacteria Many Urine Casts Negative Urine Mucus Negative Ur Culture Indicated? Yes Urine Glucose Negative COVID-19 Source Nasal/Nares SARS-CoV-2 (PCR) Negative 12/30/22 12:30 WBC RBC Hgb Hct MCV MCH MCHC RDW Plt Count MPV Immature Gran % Neutrophils % Lymphocytes % Monocytes % Eosinophils % Basophils % Nucleated RBC % Absolute Neutrophils Absolute Lymphocytes Absolute Monocytes Absolute Eosinophils Absolute Basophils RBC Morphology VBG Lactate Sodium 143 Potassium 3.8 Chloride 105 Carbon Dioxide 31.0 Anion Gap 7.0 BUN 14 Creatinine 1.3 H Est GFR (CKD-EPI 2020) 43.69 Glucose 120 H Calcium 9.5 Magnesium 2.3 Total Bilirubin 0.6 AST 27 ALT 30 Alkaline Phosphatase 82 Troponin I < 50 Total Protein 7.8 Albumin 3.7 Lipase 51 Urine Color Urine Clarity Urine pH Ur Specific [place] Urine Protein Urine Ketones Urine Blood Urine Nitrite Urine Bilirubin Urine Urobilinogen Ur Leukocyte Esterase Urine RBC Urine WBC Ur Epithelial Cells Urine Crystals Urine Bacteria Urine Casts Urine Mucus Ur Culture Indicated? Urine Glucose COVID-19 Source SARS-CoV-2 (PCR) 12/30/22 15:05 Blood Blood Culture - Pending 12/30/22 14:05 Urine - Reflex from Ua Urine Culture - Pending 12/30/22 13:29 Blood Blood Culture - Pending Preliminary micro results at discharge 12/30/22 15:05 Blood Culture - Pending Blood 12/30/22 14:05 Urine Culture - Pending Urine - Reflex from Ua 12/30/22 13:29 Blood Culture - Pending Blood PFS All Active Problems (Updated 12/30/22 @ 23:28 by Merlin Herr NP) Abdominal pain (Acute) Gastroenteritis (Acute) Altered mental status (Acute) Discharge planning issues (Acute) On deep vein thrombosis (DVT) prophylaxis (Acute) Dementia (Chronic) UTI (urinary tract infection) (Acute) Social History Smoking/Tobacco Use Status: Former Tobacco Use Smoking risk assessment performed?: Yes Time Spent with Patient Time Spent with Patient: 45-69 minutes Time was spent: preparing to see the patient(eg.review tests), ordering medications,tests, procedures, referring, communicating with other health transitional care liaison and counseling the patient
== END 2022-12-30 18:42 | disposition home or self-care (01) ==
PROVIDERS: Physician Assistant; Emergency Provider Nurse Practitioner Family
DX: R11.2 Nausea with vomiting, unspecified; N39.0 Urinary tract infection, site not specified; K52.9 Noninfective gastroenteritis and colitis, unspecified; G30.9 Alzheimer's disease, unspecified; F02.80 Dementia in other diseases classified elsewhere, unspecified severity, without behavioral disturbance, psychotic disturbance, mood disturbance, and anxiety; E86.0 Dehydration; K57.30 Diverticulosis of large intestine without perforation or abscess without bleeding
CPT/HCPCS: 36415; 80053; 83690; 87040; 87077; 87635; 87880; 93005; 96361; 96365; 99285; 71046; 74177; 81003; 81015; 83605; 83735; 84484; 85025; 87086; 87186; 93010; 99284; J0696; J3490

== ENCOUNTER 2022-12-30 21:49 | Inpatient (IN) | payer MEDICARE, SELFPAY ==
[2022-12-30] VITALS (12 sets, daily range): BP systolic 127–157; BP diastolic 56–81; PULSE 67–77; RESP 14–20; TEMP 36.5; O2SAT 92–96
--- NOTE | 2022-12-30 21:58 | ED.GENADUL_ITS ---
Discharge Plan Disposition Patient Disposition: Admit to [facility] Discharge Details Clinical Impression: Dementia, UTI (urinary tract infection), Altered mental status, Abdominal pain Primary Care Provider: Nelly,Local ED Provider: Merlin Herr Home Meds and New Rx's Prescriptions: No Action donepezil 10 MG tablet 10 mg PO DAILY venlafaxine 100 MG tablet 150 mg PO DAILY Patient Comments: willian stated patient not taking gabapentin 300 MG capsule 200 mg PO BID aspirin [Aspirin Low-Strength] 81 MG tablet,chewable 81 mg PO DAILY lorazepam 1 MG tablet 1 mg PO PRN PRN Patient Comments: stated patient not taking memantine [Namenda] 10 MG tablet 10 mg PO BID alendronate 70 mg Tablet 70 mg PO DAILY chlorpheniramine-pseudoephed 4-60 mg Tablet 1 tab PO DAILY cyanocobalamin-liver extract Tablet 1 tab PO DAILY cefpodoxime 200 mg tablet 200 mg PO BID Qty: 10 0RF Rx Instructions: must administer with a meal/food Medical Decision Making Patient returning to the emergency department for continued abdominal discomfort. Patient was seen by BRENT Lundberg and signed out to me earlier in the evening. Patient had significant white count and findings consistent with cystitis with some CT imaging findings to suggest duodenitis and ileus with no transition point and no surrounding mesenteric stranding. Patient was going to be admitted and was excepted by hospitalist service but once they saw and evaluated her decided to change his mind and take patient home and do oral antibiotics. Patient has history of significant dementia which does limit review of systems and report of physical symptoms and findings during exam. Abdomen is soft with no point tenderness noted but I did note some hypoactive bowel sounds. Exam otherwise unremarkable and unchanged from earlier. is agreeable for admission and I did contact hospitalist Dr. Bernard who is agreeable to admit patient. HPI General Mode of arrival: ambulatory . Date/Time Provider Initiated Documentation: 12/30/22 21:54 . Limitations to Documentation: no limitations . Information obtained by: patient, family and RN notes reviewed . History of Present Illness 72 year old F presents to the emergency department with the chief complaint of Abdominal pain, described as moderate and similar to prior episodes, Quality is described as aching, Patient did receive the following treatments prior to arrival, none Related Data Home Medications Medication Instructions Recorded Confirmed aspirin 81 mg chewable tablet 81 mg PO DAILY 11/27/17 12/30/22 (Aspirin Low-Strength) donepezil 10 mg tablet 10 mg PO DAILY 11/27/17 12/30/22 gabapentin 300 mg capsule 200 mg PO BID 11/27/17 12/30/22 lorazepam 1 mg tablet 1 mg PO PRN PRN 11/27/17 12/30/22 memantine 10 mg tablet (Namenda) 10 mg PO BID 11/27/17 12/30/22 venlafaxine 100 mg tablet 150 mg PO DAILY 11/27/17 12/30/22 alendronate 70 mg tablet 70 mg PO DAILY 12/30/22 12/30/22 cefpodoxime 200 mg tablet 200 mg PO BID #10 tabs 12/30/22 12/30/22 chlorpheniramine-pseudoephedrine 4 1 tab PO DAILY 12/30/22 12/30/22 mg-60 mg tablet cyanocobalamin-liver extract tablet 1 tab PO DAILY 12/30/22 12/30/22 Previous Rx's Medication Instructions Recorded cefpodoxime 200 mg tablet 200 mg PO BID #10 tabs 12/30/22 Allergies Allergy/AdvReac Type Severity Reaction Status Date / Time amitriptyline Allergy unknown Unverified 12/30/22 21:59 codeine Allergy unknown Unverified 12/30/22 21:59 dicyclomine Allergy unknown Unverified 12/30/22 21:59 pregabalin [From Lyrica] Allergy Unverified 12/30/22 21:59 General Stated Complaint: Abd Prob LIZBETH: 3 Review of Systems Unobtainable due to mental condition Gastrointestinal Gastrointestinal: Reports abdominal pain Comments: No new nausea vomiting after discharge Neurologic Neurologic: Reports behavioral changes Psychiatric Psychiatric: Reports behavioral changes PFSH All Active Problems (Updated 12/30/22 @ 23:28 by Merlin Herr NP) Abdominal pain (Acute) Gastroenteritis (Acute) Altered mental status (Acute) Discharge planning issues (Acute) On deep vein thrombosis (DVT) prophylaxis (Acute) Dementia (Chronic) UTI (urinary tract infection) (Acute) Social History Smoking risk assessment performed?: No Exam Const General: cooperative Orientation: alert and awake Resp Effort & Inspection: normal respiratory effort and able to speak in complete sentences Auscultation: clear to auscultation bilaterally Cardio Rate: regular rate Rhythm: regular rhythm Heart Sounds: S1 normal and S2 normal GI Palpation: soft, not firm, no guarding, no masses, no pulsatile masses, not rigid, no splenomegaly and nontender Auscultation: hypoactive bowel sounds Back/Spine/Pelvis Back: no CVA tenderness Neuro General: patient alert, patient awake, patient oriented x3, gait normal and moves all extremities Course Vital Signs Vital signs: Vital Signs Temperature 36.5 C 12/30/22 21:53 Pulse 73 12/30/22 21:53 Respiratory Rate 16 12/30/22 21:53 Blood Pressure 157/81 H 12/30/22 21:53 Pulse Oximetry 96 12/30/22 21:53 Temperature 36.5 C 12/30/22 21:53 Temperature Source Temporal Artery Scan 12/30/22 21:53 Pulse 73 12/30/22 21:53 Respiratory Rate 16 12/30/22 21:53 Respiratory Effort Normal 12/30/22 21:53 Blood Pressure 157/81 H 12/30/22 21:53 Blood Pressure Position Supine 12/30/22 21:53 Pulse Oximetry 96 12/30/22 21:53 Oxygen Delivery Method Room Air 12/30/22 21:53 Oxygen Flow Rate 0 12/30/22 21:53 Pain Level 7 12/30/22 21:53
--- NOTE | 2022-12-30 22:31 | HPE_ITS ---
Date of service: 12/30/22 Time of Service: 22:32 Assessment and Plan Assessment and plan (1) Abdominal pain: Status: Acute Assessment and plan: Symptoms and findings do not clearly align, may have several issues. Probable UTI by urinalysis (and CT), but vomiting, diarrhea and epigastric pain would not be expected presentation; the latter might more correlate with UGI findings on CT. For now I would proceed on two tracks: 1. Pyuria: will continue Rocephin and await cultures 2. Epigastric pain, query peptic-acid disease vs gastroenteritis: NPO, PPI, consider UGI or EGD if does not clarify Reviewed ADs with , requests DNR. History of Present Illness History of Present Illness Chief Complaint: abdominal pain Narrative: 72 female with h/o dementia. Seen earlier today with several episodes of vomiting and diarrhea. Findings of note for white count 23, pyuria (5-10 wbc/hpf) and CT abdomen showing bladder wall thickening and stranding c/w cystitis, but also mild wall thickening of duodenum and distal small bowel. Patient was given Rocephin 1 gram and admitted, but a short time later was discharged to home ( reports patient requested discharge). Shortly after return home patient drank water and developed epigastric pain and returns for evaluation. In ER labs and imaging not repeated. I was asked to evaluate for admission. Patient unable to provide any meaningful history, states she seems to have been comfortable here. Review of Systems Narrative: per HPI PFSH All Active Problems (Updated 12/30/22 @ 22:39 by Jose Eduardo Bernard MD) Abdominal pain (Acute) Gastroenteritis (Acute) Altered mental status (Acute) Discharge planning issues (Acute) On deep vein thrombosis (DVT) prophylaxis (Acute) Dementia (Chronic) UTI (urinary tract infection) (Acute) Social History Smoking risk assessment performed?: No Meds Allergies and Home Medications Allergies Allergy/AdvReac Type Severity Reaction Status Date / Time amitriptyline Allergy unknown Unverified 12/30/22 21:59 codeine Allergy unknown Unverified 12/30/22 21:59 dicyclomine Allergy unknown Unverified 12/30/22 21:59 pregabalin [From Lyrica] Allergy Unverified 12/30/22 21:59 Home Medications Medication Instructions Recorded Confirmed Type aspirin 81 mg chewable tablet 81 mg PO DAILY 11/27/17 12/30/22 History (Aspirin Low-Strength) donepezil 10 mg tablet 10 mg PO DAILY 11/27/17 12/30/22 History gabapentin 300 mg capsule 200 mg PO BID 11/27/17 12/30/22 History lorazepam 1 mg tablet 1 mg PO PRN PRN 11/27/17 12/30/22 History memantine 10 mg tablet (Namenda) 10 mg PO BID 11/27/17 12/30/22 History venlafaxine 100 mg tablet 150 mg PO DAILY 11/27/17 12/30/22 History alendronate 70 mg tablet 70 mg PO DAILY 12/30/22 12/30/22 History cefpodoxime 200 mg tablet 200 mg PO BID #10 tabs 12/30/22 12/30/22 Rx chlorpheniramine-pseudoephedrine 4 1 tab PO DAILY 12/30/22 12/30/22 History mg-60 mg tablet cyanocobalamin-liver extract tablet 1 tab PO DAILY 12/30/22 12/30/22 History Exam Narrative Exam Narrative: 157.81, 73, 36.5, 16, 96% RA. HEENT atraumatic; neck supple; lungs clear; heart RRR; abdomen soft and NT; extremities w/o edema; neuro Ox1, moves all 4s Results Last Vital Signs Temp 36.5 C 12/30/22 21:53 Pulse 73 12/30/22 21:53 Resp 16 12/30/22 21:53 BP 157/81 H 12/30/22 21:53 Pulse Ox 96 12/30/22 21:53 Time Spent Time spent with Patient: 40-54 minutes Time was spent: preparing to see the patient(eg.review tests), obtaining and/or reviewing separately otained hiistory, ordering medications,tests, procedures, referring, communicating with other health associate director career services and indepentently interpreting results
[2022-12-31 00:01] VITALS: BP 149/80; PULSE 78; RESP 16; TEMP 36.9; O2SAT 97
[2022-12-31] MEDS: cefTRIAXone 1,000 MG in Normal Saline 50 ML 100 MG IVPB (00:21)
[2022-12-31] MEDS: Pantoprazole 40 MG VIAL IVP ×2 (00:28→07:58)
[2022-12-31] MEDS: Lactated Ringers 1,000 ML 75 ML IV ×2 (02:00→14:00)
[2022-12-31] MEDS: ACETAMINOPHEN 1,000 MG/100 ML BTL 400 MG IVPB (04:18)
[2022-12-31 06:25] VITALS: BP 128/76; PULSE 74; RESP 16; TEMP 36.2; O2SAT 96
[2022-12-31] MEDS: Normal Saline Flush 10 ML SYR IVP ×2 (07:58→12:18)
[2022-12-31] MEDS: Memantine 5 MG TAB 10 MG PO (09:01)
[2022-12-31] MEDS: Aspirin 81 MG CHEW PO (09:01)
[2022-12-31 10:35] LABS: HCT 39.7 % (36.0-46.0); HGB 13.4 g/dL (11.2-15.7); MCH 30.9 pg (27.0-33.0); MCHC 33.8 % (32.0-36.0); MCV 92 fL (80-95); MPV 9.4 fL (8.0-11.0); Platelet Count 186 10^3/uL (130-400); RBC 4.34 10^6/uL (3.93-5.22); RDW 12.3 % (11.7-14.6); RDW-SD 41.1 fL; WBC 10.33 10^3/uL (4.4-10.8)
[2022-12-31 10:48] LABS: Anion Gap 7.8 mmol/L (3-11); BUN 8 mg/dL (7-18); CO2 29.2 mmol/L (21.0-32.0); Calcium 8.4 mg/dL (8.5-10.1); Chloride 106 mmol/L (98-107); Estimated GFR 59.86 (mL/min/1.73m2); Glucose 102 mg/dL (74-106); Potassium 3.6 mmol/L (3.5-5.1); Sodium 143 mmol/L (136-145)
--- NOTE | 2022-12-31 10:49 | INITIAL_ITS ---
Date of service: 12/31/22 Time of Service: 10:49 Care Management Initial Assmt Initial Assessment REASON FOR HOSPITALIZATION:: Abdominal Pain PREVIOUS FUNCTIONAL STATUS/SOCIAL/FAMILY SUPPORTS:: Yodit lives in [facility] with her Jay. The couple stay at their summer home in [facility] [facility] each summer for 3 months. They are planning on returning in February, but can go back earlier if needed. Yodit has dementia and no longer drives. She does not use a walker or cane. Jay feels that the Yodit manages quite well with his assistance. CURRENT FUNCTIONAL STATUS:: Yodit was sitting in her recliner and her is sitting next to her. Yodit engages minimally with this communications writer, offering 'yes' or 'no' responses. Information is mostly obtained from Jaspreet. Patient appears comfortable and is smiling throughout this interaction. ADVANCE DIRECTIVES:: None, per Jaspreet Has patient been provided with info about the portal/API?: Yes Did the patient sign up for the portal?: No CODE STATUS:: DNR/DNI INSURANCE COVERAGE / FINANCIAL ISSUES:: AARP Lorena [place] CURRENT HOME/COMMUNITY SERVICES/EQUIPMENT:: None PRIMARY CARE PHYSICIAN:: Abbi Roche ([place]) POTENTIAL DISCHARGE NEEDS:: Discharge plan of care, evaluations for further needs PATIENT/FAMILY EDUCATION NEEDS:: Review discharge instructions, limitations, medications and plan to follow up with community providers. Discuss ask me karan jon. TRANSPORTATION:: Via private vehicle with PLAN:: Anticipate Yodit will discharge home via private vehicle with family when medically cleared by hospitalist. She will follow up with community providers and her discharge plan of care as instructed. [facility] services will be ordered, if indicated. PFSH All Active Problems (Updated 12/30/22 @ 23:28 by Merlin Herr NP) Abdominal pain (Acute) Gastroenteritis (Acute) Altered mental status (Acute) Discharge planning issues (Acute) On deep vein thrombosis (DVT) prophylaxis (Acute) Dementia (Chronic) UTI (urinary tract infection) (Acute) Social History Smoking/Tobacco Use Status: Former Tobacco Use Smoking risk assessment performed?: Yes
[2022-12-31] MEDS: Sucralfate 1 GM TAB PO ×2 (11:06→15:42)
[2022-12-31] MEDS: cefTRIAXone 1 GM/50 ML BAG IVPB (12:18)
--- NOTE | 2022-12-31 14:08 | PGE_ITS ---
Date of Service Date of service: 12/31/22 Time of Service: 14:08 Assessment and Plan Assessment and plan (1) Abdominal pain: Status: Acute Assessment and plan: started on protonix, adding carafate will check strep screen can have mylanta, cepacol lozenges prn white count normalized CT scan showed 1. Wall thickening seen in the duodenum suspicious for duodenitis. 2. Mild distention and wall thickening seen in the small bowel which may represent ileus.? Enteritis should also be considered. 3. Thickening of the wall of the urinary bladder which may be due to unde rdistention but cystitis cannot be excluded.? Please correlate clinically.? advance diet as tolerated. (2) UTI (urinary tract infection): Status: Acute Assessment and plan: continue ceftriaxone 1 gm day 2/ while cultures pending (3) Gastroenteritis: Status: Acute Assessment and plan: clear liquids, advance as tolerated (4) Dementia: Status: Chronic Assessment and plan: continue home medication anticipate acute delirium in setting of infection and new environment. maintain safety precautions (5) On deep vein thrombosis (DVT) prophylaxis: Status: Acute Assessment and plan: enoxaparin (6) Discharge planning issues: Status: Acute Assessment and plan: case management following. discussed with DR Erickson Subjective Subjective Patient reports: no bowel movement and afebrile; denies tolerating liquids well ( c/o burning/pain with swallowing) or shortness of breath Interval history since last seen: sore throat Exam Const General: cooperative, comfortable and no acute distress Nutritional Appearance: thin Orientation: alert, awake, oriented to person and confused HENMD Head: normal to inspection, normocephalic and atraumatic Mouth: oral mucosae normal Resp Effort & Inspection: normal respiratory effort Cardio Rate: regular rate Rhythm: regular rhythm GI Inspection: normal to inspection Palpation: soft, no guarding, no masses and nontender Auscultation: normal bowel sounds Skin General skin exam: no rashes or lesions noted Neuro General: patient alert and patient awake Cognition: abnormal cognition Extrem General: normal to inspection and full ROM Psych Mental Status: other Speech and Movement: speech and movement normal Mood: congruent mood and other Affect: normal affect Objective Last Vital Signs Temp 36.2 C L 12/31/22 06:25 Pulse 74 12/31/22 06:25 Resp 16 12/31/22 06:25 BP 128/76 12/31/22 06:25 Pulse Ox 96 12/31/22 06:25 Laboratory Results - last 24 hr 12/31/22 12/31/22 10:00 10:00 WBC 10.33 RBC 4.34 Hgb 13.4 D Hct 39.7 MCV 92 MCH 30.9 MCHC 33.8 RDW 12.3 Plt Count 186 MPV 9.4 Sodium 143 Potassium 3.6 Chloride 106 Carbon Dioxide 29.2 Anion Gap 7.8 BUN 8 Creatinine 1.0 Est GFR (CKD-EPI 2020) 59.86 Glucose 102 Calcium 8.4 L Time Spent with Patient Time Spent with Patient: <25 minutes Time was spent: preparing to see the patient(eg.review tests), ordering medicat ions,tests, procedures, indepentently interpreting results and counseling the patient
--- NOTE | 2022-12-31 14:55 | W.PM.DS.N ---
Date of service: 12/31/22 Time of Service: 14:56 DS: Diagnosis Discharge Diagnosis (1) Abdominal pain: Status: Acute (2) UTI (urinary tract infection): Status: Acute (3) Gastroenteritis: Status: Acute (4) Dementia: Status: Chronic Discharge Plan Disposition Patient Disposition: Home Condition: Stable Discharge Details Reason For Visit: Abdominal Pain, UTI Admit Date/Time: 12/30/22 22:44 Admit Provider: Jose Eduardo Bernard Attending Provider: Jose Eduardo Bernard [facility]: This is a 72-year-old female patient with advanced dementia who returned to the hospital after being discharged diagnosed with UTI, and gastroenteritis. When she arrived home she reported burning after taking oral fluids so returned her to the emergency department. Work-up was limited as she has just left and she was asked to be admitted under hospitalist service for further monitoring. She was receiving IV fluids. She was started on Protonix, Carafate added this morning. She remained hemodynamically stable and able to tolerate fluids. Her abdominal exam remained benign there was no further vomiting noted she is stable and ready for discharge to home again she was advised to continue her previous antibiotics as directed while urine cultures are pending. Prescription sent for pantoprazole and Carafate. Discharge to home with no new services Discharge discussed with Dr. Rudd [place] Meds and New Rx's Prescriptions: New sucralfate 1 gram Tablet 1 g PO AC & HS Qty: 120 0RF pantoprazole [Protonix] 40 mg tablet,delayed release (DR/EC) 40 mg PO DAILY Qty: 30 0RF Continued donepezil 10 MG tablet 10 mg PO HS venlafaxine 100 MG tablet 150 mg PO HS Patient Comments: willian stated patient not taking gabapentin 300 MG capsule 200 mg PO HS aspirin [Aspirin Low-Strength] 81 MG tablet,chewable 81 mg PO DAILY lorazepam 1 MG tablet 1 mg PO PRN PRN Patient Comments: stated patient not taking memantine [Namenda] 10 MG tablet 10 mg PO BID alendronate 70 mg Tablet 70 mg PO DAILY chlorpheniramine-pseudoephed 4-60 mg Tablet 1 tab PO DAILY cyanocobalamin-liver extract Tablet 1 tab PO DAILY cefpodoxime 200 mg tablet 200 mg PO BID Qty: 10 0RF Rx Instructions: must administer with a meal/food Qulipta 30 mg Tablet 30 mg PO DAILY Discharge Instructions Instructions: Urinary Tract Infection in Women (DC), Gastroenteritis (DC) Additional Instructions: clear liquids, advance diet as tolerated take antibiotics as prescribed, even if you feel better your strep screen is still pending but the antibiotic you are taking for your UTI should cover for strep infection. Stand Alone Forms: Nursing Discharge Form Referrals: No,Local [Primary Care Provider] - (return for new or worsening symptoms) Activity:: Activity as Tolerated Equipment/Supplies:: No Equipment Needed Diet:: As Tolerated Discharge Orders Discharge Orders: Discharge Order (Routine); Ordered 12/31/22 Ordered By: Maura Cantrell Discharge Data Discharge Date/Time-TO BE ENTERED AT DEPARTURE: 12/31/22 15:43 DS: Summary Time Spent with Patient providing and/or coordinating discharge services: Less than 30 minutes Status at Discharge Functional status at discharge: independent ambulation Overall status at discharge: patient is back to baseline Mental Status: other Speech and Movement: speech and movement normal Mood: congruent mood and other Affect: normal affect Exam Const General: cooperative, comfortable and no acute distress Nutritional Appearance: thin Orientation: alert, awake, oriented to person and confused HENMT Head: normal to inspection, normocephalic and atraumatic Mouth: oral mucosae normal Resp Effort & Inspection: normal respiratory effort Cardio Rate: regular rate Rhythm: regular rhythm GI Inspection: normal to inspection Palpation: soft, no guarding, no masses and nontender Auscultation: normal bowel sounds Skin General skin exam: no rashes or lesions noted Neuro General: patient alert and patient awake Cognition: abnormal cognition Extrem General: normal to inspection and full ROM Psych Mental Status: other Speech and Movement: speech and movement normal Mood: congruent mood and other Affect: normal affect DS: Data Vitals/I&O Vitals and I&O: Vital Signs Temperature 36.2 C L 12/31/22 06:25 Temperature Source Tympanic 12/31/22 06:25 Pulse 74 12/31/22 06:25 Pulse Rhythm Regular 12/31/22 08:00 Pulse 72 12/30/22 23:40 Respiratory Rate 16 12/31/22 06:25 Respiratory Effort Normal, Non-Labored 12/31/22 08:00 Respiratory Depth Normal 12/31/22 08:00 Respiratory Pattern Normal 12/31/22 08:00 Blood Pressure 128/76 12/31/22 06:25 Blood Pressure Mean 76 12/30/22 23:31 Blood Pressure Position Supine 12/30/22 21:53 Pulse Oximetry 96 12/31/22 06:25 Oxygen Delivery Method Room Air 12/31/22 06:25 Oxygen Flow Rate 0 12/31/22 06:25 Pain Level 3 12/30/22 23:58 Intake & Output 12/30/22 12/31/22 12/31/22 23:59 11:59 23:59 Intake Total 160 / 982.5 822.5 / 982.5 Output Total 800 / 800 Balance -640 / 182.5 822.5 / 182.5 Weight 58.1 kg Intake: IV 160 / 982.5 822.5 / 982.5 Output: Urine 800 / 800 Other: Urine Color Yellow Urine Appearance Clear Urine Odor None Voiding Methods Toilet Toilet Data Completed and Pending Labs on day of discharge: Labs from last 24 hours 12/31/22 12/31/22 10:00 10:00 WBC 10.33 RBC 4.34 Hgb 13.4 D Hct 39.7 MCV 92 MCH 30.9 MCHC 33.8 RDW 12.3 Plt Count 186 MPV 9.4 Sodium 143 Potassium 3.6 Chloride 106 Carbon Dioxide 29.2 Anion Gap 7.8 BUN 8 Creatinine 1.0 Est GFR (CKD-EPI 2020) 59.86 Glucose 102 Calcium 8.4 L 12/31/22 13:15 Tonsil - Not Specified Group A Streptococcus Culture - Pending Preliminary micro results at discharge 12/31/22 13:15 Group A Streptococcus Culture - Pending Tonsil - Not Specified PFSH All Active Problems (Updated 01/01/23 @ 00:16 by MAYRA BENITEZ) Abdominal pain (Acute) Gastroenteritis (Acute) Altered mental status (Acute) Dementia (Chronic) UTI (urinary tract infection) (Acute) Social History Smoking/Tobacco Use Status: Former Tobacco Use Smoking risk assessment performed?: Yes Time Spent with Patient Time Spent with Patient: <45 minutes Time was spent: preparing to see the patient(eg.review tests), counseling the patient and care coordination
--- NOTE | 2023-01-01 11:19 | PT.INNT ---
PT Notes Visit Reasons: abdominal pain, UTI Patient was discharged to home on . No services were provided for this epeisode of care.
--- NOTE | 2023-01-03 08:21 | NUR.NOTE ---
Nursing Note:in chart for antibiotics
== END 2022-12-31 15:43 | disposition home or self-care (01) | DRG 690 ==
LOC: ER 23:28 → MS 23:48
PROVIDERS: Admitting Provider General Practice; Emergency Provider Nurse Practitioner Family; Visit Provider General Practice
DX: N30.00 Acute cystitis without hematuria; K52.9 Noninfective gastroenteritis and colitis, unspecified; D72.829 Elevated white blood cell count, unspecified; F03.90 Unspecified dementia, unspecified severity, without behavioral disturbance, psychotic disturbance, mood disturbance, and anxiety
CPT/HCPCS: 36415; 80048; 85027; 87081; 99222; 99233; 99238; J0131; J0696

== ENCOUNTER 2023-11-17 12:06 | Emergency (ER) | payer MEDICARE, SELFPAY ==
[2023-11-17] VITALS (38 sets, daily range): BP systolic 96–132; BP diastolic 39–62; PULSE 52–68; RESP 11–18; TEMP 36.5; O2SAT 66–100
--- NOTE | 2023-11-17 12:15 | DI.CT_ITS ---
Exam(s) CT ABDOMEN PELVIS W EXAM: CT ABDOMEN PELVIS W CLINICAL HISTORY: lower quadrant abdominal pain. TECHNIQUE: Imaging Protocol: Axial computed tomography images with coronal and sagittal reformatted images were created and reviewed CONTRAST MATERIAL: Intravenous: Omnipaque-350 100cc Oral: None COMPARISON: CT CT ABDOMEN PELVIS W from 12/30/2022 FINDINGS: VISUALIZED LUNG BASES: Symmetrical increased dependent markings in both lung bases. There are no ple ural effusions.. ABDOMEN: There is no ascites. LIVER: There are no focal hepatic lesions evident. No dilated intrahepatic ducts. GALLBLADDER/BILIARY: No obvious gallbladder pathology. CBD is not dilated. PANCREAS: No evidence of pancreatic mass nor dilatation of the pancreatic duct. SPLEEN: Spleen is not enlarged. No obvious intrasplenic lesions. Splenic and portal veins are paten t. ADRENALS: There are no significant adrenal masses. KIDNEYS:Parapelvic cysts in the right kidney are noted but there is also some dilatation of the upper right collecting system with what appears to be an element of UPJ obstruction-mild. The mid-distal right ureter is not dilated. The opposite-left kidney is again noted to be somewhat malformed and at rophic without significant calculi nor lesions. There is no dilatation of the left collecting system . No solid renal masses nor calculi. Urinary bladder wall is diffusely thickened.. ABDOMINAL AORTA: Abdominal aorta is not enlarged. LYMPH NODES:There is no retroperitoneal nor paraaortic adenopathy. ABDOMINAL WALL: No evidence of significant anterior abdominal wall nor inguinal hernia. GI: No evidence of bowel obstruction. However, there is a colitis pattern in left side of the colon which starts at the level the splenic flexure and extends continuously down to involve the rectosigmo id. In addition there is also extensive diverticulosis of the sigmoid but without evidence of acute diverticulitis. No free fluid. PELVIS: GI: Appendix is difficult to isolate. No evidence of obvious acute appendicitis. LYMPH NODES: There is no intrapelvic nor inguinal adenopathy. REPRODUCTIVE: Uterus is surgically absent. There are no abnormal adnexal masses. URINARY BLADDER: Diffuse relatively uniform wall thickening. OSSEOUS: No fractures and no significant osseous lesions. Sacroiliac joints unremarkable. IMPRESSION: 1. When compared to the prior CT scan of 12/30/2022 the previously present nondilated small bowel loo ps have resolved but there is now a colitis pattern involving the distal half of the colon from the s plenic flexure down into the pelvis to involve most of the rectosigmoid in continuous fashion. 2. Independent of the above there is also extensive sigmoid diverticulosis but without evidence of ob vious acute diverticulitis. 3. No evidence of ascites. No free air. No abscess. 4. Incidental renal findings as above.. Also prior hysterectomy. First read by [facility]. Final report called by myself to ER provider 11/17/2023 5:55 p.m. Informed re interpretation discrepancy RADIATION DOSE DELIVERED: 850.58mGy.cm Total DLP DATA REPOSITORY: All CT scans at this facility are submitted to the National Radiology Data Registry (NRDR) Dose Index Registry (DIR) with the [employer] (ACR). RADIATION OPTIMIZATION: All CT scans at this facility use at least one of these dose optimization te chniques: automated exposure control; mA and/or kV adjustment per patient size (includes targeted exa ms where dose is matched to clinical indication); or iterative reconstruction.
--- NOTE | 2023-11-17 12:15 | RT.EKG_ITS ---
APPROVED REPORT Exam: Resting ECG Reason for Exam: weakness Patient Location: E HR:57 bpm ECG Measurements Heart Rate 57 AXIS ID 218 P 29 QRSd 87 QRS 29 QT 438 T 48 QTc 428 Conclusion Sinus bradycardia...rate< 60 Borderline prolonged ID interval...ID >212, V-rate 50- 90
[2023-11-17] MEDS: Metoclopramide 10 MG/2 ML VIAL 5 MG IVP (12:56)
[2023-11-17] MEDS: Normal Saline 500 ML IV (12:56)
[2023-11-17] MEDS: fentaNYL 100 MCG/2 ML VIAL 25 MCG IVP (12:56)
[2023-11-17 13:12] LABS: Abs Immature Grans 0.05 10^3/uL (0.0-0.06); Absolute Lymphocyte Count 0.92 10^3/uL (1.2-3.4); Absolute Monocyte Count 0.48 10^3/uL (0.1-0.8); Basophils % 0.5 %; Eosinophils % 0.5 %; HCT 41.8 % (36.0-46.0); HGB 13.8 g/dL (11.2-15.7); Immature Grans % 0.5 %; Lymphocytes % 8.3 %; MCH 30.8 pg (27.0-33.0); MCV 93 fL (80-95); MPV 9.2 fL (8.0-11.0); Monocytes % 4.3 %; Neutrophils % 85.9 %; Platelet Count 184 10^3/uL (130-400); RBC 4.48 10^6/uL (3.93-5.22); RDW 12.1 % (11.7-14.6); WBC 11.11 10^3/uL (4.4-10.8)
[2023-11-17 13:15] LABS: Absolute Basophil Count 0.06 10^3/uL (0.0-0.2); Absolute Eosinophil Count 0.06 10^3/uL (0.0-0.7); Absolute Neutrophil Count 9.54 10^3/uL (1.2-6.7)
[2023-11-17 13:27] LABS: ALT 23 U/L (14-59); AST 24 U/L (15-37); Albumin 3.3 g/dL (3.4-5.0); Alkaline Phosphatase 84 U/L (46-116); Anion Gap 7.2 mmol/L (3-11); BUN 10 mg/dL (7-18); Bilirubin, Total 0.8 mg/dL (0.2-1.0); CO2 30.8 mmol/L (21.0-32.0); CREATININE 1.1 mg/dL (0.55-1.02); Calcium 8.4 mg/dL (8.5-10.1); Chloride 107 mmol/L (98-107); Estimated GFR 53.06 (mL/min/1.73m2); Glucose 99 mg/dL (74-106); Lipase 42 U/L (16-77); Potassium 3.7 mmol/L (3.5-5.1); Sodium 145 mmol/L (136-145); Total Protein 6.7 g/dL (6.4-8.2)
[2023-11-17] MEDS: Normal Saline - Diluent 50 ML VIAL IJ (13:58)
[2023-11-17] MEDS: Omnipaque 350 MG/ML 100 ML BTL 74 ML IJ (13:59)
[2023-11-17] MEDS: Normal Saline Flush 10 ML SYR IVP (14:01)
--- NOTE | 2023-11-17 15:18 | ED.GENADUL_ITS ---
Discharge Plan Disposition Patient Disposition: Home Condition: Stable Discharge Details Clinical Impression: UTI (urinary tract infection), Colitis, Abdominal pain Primary Care Provider: Unknown,Unknown ED Provider: Agnieszka Christy Home Meds and New Rx's Prescriptions: New phenazopyridine [Pyridium] 100 mg tablet 100 mg PO BID Qty: 6 0RF amoxicillin-pot clavulanate 875-125 mg tablet 1 tab PO BID Qty: 14 0RF amoxicillin-pot clavulanate 875-125 mg tablet 1 tab PO Q8H Qty: 21 0RF Continued donepezil 10 MG tablet 10 mg PO HS gabapentin 300 MG capsule 200 mg PO HS aspirin [Aspirin Low-Strength] 81 MG tablet,chewable 81 mg PO DAILY alendronate 70 mg Tablet 70 mg PO DAILY chlorpheniramine-pseudoephed 4-60 mg Tablet 1 tab PO DAILY Hold Instructions: Pt Stopped/Never Started Qulipta 30 mg Tablet 30 mg PO DAILY Discontinued venlafaxine 100 MG tablet 150 mg PO HS Hold Instructions: Pt Stopped/Never Started Patient Comments: husaband stated patient not taking lorazepam 1 MG tablet 1 mg PO PRN PRN Hold Instructions: Pt Stopped/Never Started Patient Comments: stated patient not taking memantine [Namenda] 10 MG tablet 10 mg PO BID cyanocobalamin-liver extract Tablet 1 tab PO DAILY Hold Instructions: Pt Stopped/Never Started sucralfate 1 gram Tablet 1 g PO AC & HS Qty: 120 0RF Hold Instructions: Pt Stopped/Never Started pantoprazole [Protonix] 40 mg tablet,delayed release (DR/EC) 40 mg PO DAILY Qty: 30 0RF Hold Instructions: Pt Stopped/Never Started Discharge Instructions Instructions: Urinary Tract Infection in Women (ED), Abdominal Pain (ED) Additional Instructions: Given placed on the list to follow-up with a primary care physician, you may try calling [facility], or healthcare science specialist will likely call you on Sunday to establish care About the listed urologist number below so you may follow-up here Take yogurt daily while on the antibiotic Bring stool sample back to the emergency department as soon as you are able to so we may test this, try to make sure there is no urine in the stool as this is a specimen that we cannot past You may take the Pyridium as needed for urinary discomfort Have also given you several tabs of oxycodone and I recommend one half tab no more than twice a day as needed for discomfort Please return with fever, worsening pain, or should any new symptoms develop Referrals: Nolan Conway MD [ [facility] STAFF PHYSICIAN] - 1 day Discharge Data Discharge Date/Time-TO BE ENTERED AT DEPARTURE: 11/17/23 16:27 HPI General Date/Time Provider Initiated Documentation: 11/17/23 12:17 . HPI Narrative: 73 presents with abdominal pain and nausea with loose stools. Patient has a history of advanced dementia and her is her DPOA and historian. He states her symptoms have been present for the past several days. They just returned from [place] a week ago. They live 6 months of the year in [place] and 6 months of the year in [place]. Patient has had recurrent urinary tract infections over the course the past 6 months. Last antibiotic was approximately 2 weeks ago. Related Data Home Medications Medication Instructions Recorded Confirmed aspirin 81 mg chewable tablet 81 mg PO DAILY 11/27/17 11/17/23 (Aspirin Low-Strength) donepezil 10 mg tablet 10 mg PO HS 11/27/17 11/17/23 gabapentin 300 mg capsule 200 mg PO HS 11/27/17 11/17/23 alendronate 70 mg tablet 70 mg PO DAILY 12/30/22 11/17/23 chlorpheniramine-pseudoephedrine 4 1 tab PO DAILY 12/30/22 11/17/23 mg-60 mg tablet atogepant 30 mg tablet (Qulipta) 30 mg PO DAILY 12/31/22 11/17/23 amoxicillin 875 mg-potassium 1 tab PO BID #14 tabs 11/17/23 clavulanate 125 mg tablet amoxicillin 875 mg-potassium 1 tab PO Q8H #21 tabs 11/17/23 clavulanate 125 mg tablet phenazopyridine 100 mg tablet 100 mg PO BID 6 doses #6 tabs 11/17/23 (Pyridium) Previous Rx's Medication Instructions Recorded amoxicillin 875 mg-potassium 1 tab PO BID #14 tabs 11/17/23 clavulanate 125 mg tablet amoxicillin 875 mg-potassium 1 tab PO Q8H #21 tabs 11/17/23 clavulanate 125 mg tablet phenazopyridine 100 mg tablet 100 mg PO BID 6 doses #6 tabs 11/17/23 (Pyridium) Allergies Allergy/AdvReac Type Severity Reaction Status Date / Time amitriptyline Allergy unknown Unverified 11/17/23 15:14 codeine Allergy unknown Unverified 11/17/23 15:14 dicyclomine Allergy unknown Unverified 11/17/23 15:14 pregabalin [From Lyrica] Allergy Anaphylaxis Unverified 11/17/23 15:14 General Stated Complaint: Abd Prob LIZBETH: 3 Exam Narrative Exam Narrative: Alert and oriented x 1 female, tearful, no scleral icterus, lungs clear to auscultation, cardiac rate rhythm regular, abdominal tenderness in the lower quadrants, no pallor, alert and at baseline orientation, no peripheral edema, no CVA tenderness Course Vital Signs Vital signs: Vital Signs Temperature 36.5 C 11/17/23 12:10 Pulse 68 11/17/23 12:10 Respiratory Rate 15 11/17/23 12:10 Blood Pressure 113/55 L 11/17/23 12:10 Pulse Oximetry 97 11/17/23 12:10 Temperature 36.5 C 11/17/23 15:12 Temperature Source Tympanic 11/17/23 15:12 Pulse 68 11/17/23 15:12 Pulse 52 L 11/17/23 15:10 Respiratory Rate 15 11/17/23 15:12 Respiratory Effort Normal 11/17/23 15:12 Blood Pressure 113/55 L 11/17/23 15:12 Blood Pressure Mean 72 11/17/23 15:00 Blood Pressure Position Sitting 11/17/23 15:12 Pulse Oximetry 97 11/17/23 15:12 Oxygen Delivery Method Room Air 11/17/23 15:12 Oxygen Flow Rate 0 11/17/23 12:10 Lab/Test Results Lab/Test Results: Laboratory Tests Range/Units 11/17/23 13:06 WBC (4.4-10.8) 10^3/uL 11.11 H RBC (3.93-5.22) 10^6/uL 4.48 Hgb (11.2-15.7) g/dL 13.8 Hct (36.0-46.0) % 41.8 MCV (80-95) fL 93 MCH (27.0-33.0) pg 30.8 MCHC (32.0-36.0) % 33.0 RDW (11.7-14.6) % 12.1 Plt Count (130-400) 10^3/uL 184 MPV (8.0-11.0) fL 9.2 Immature Gran % % 0.5 Neutrophils % % 85.9 Lymphocytes % % 8.3 Monocytes % % 4.3 Eosinophils % % 0.5 Basophils % % 0.5 Nucleated RBC % (0.0-0.3) % 0.0 Absolute Neutrophils (1.2-6.7) 10^3/uL 9.54 H Absolute Lymphocytes (1.2-3.4) 10^3/uL 0.92 L Absolute Monocytes (0.1-0.8) 10^3/uL 0.48 Absolute Eosinophils (0.0-0.7) 10^3/uL 0.06 Absolute Basophils (0.0-0.2) 10^3/uL 0.06 Sodium (136-145) mmol/L 145 Potassium (3.5-5.1) mmol/L 3.7 Chloride (98-107) mmol/L 107 Carbon Dioxide (21.0-32.0) mmol/L 30.8 Anion Gap (3-11) mmol/L 7.2 BUN (7-18) mg/dL 10 Creatinine (0.55-1.02) mg/dL 1.1 H Est GFR (CKD-EPI 2020) (mL/min/1.73m2) 53.06 Glucose (74-106) mg/dL 99 Calcium (8.5-10.1) mg/dL 8.4 L Total Bilirubin (0.2-1.0) mg/dL 0.8 AST (15-37) U/L 24 ALT (14-59) U/L 23 Alkaline Phosphatase (46-116) U/L 84 Total Protein (6.4-8.2) g/dL 6.7 Albumin (3.4-5.0) g/dL 3.3 L Lipase (16-77) U/L 42 Medical Decision Making 73-year-old female presenting with lower abdominal pain, poor historian so majority of history was obtained from . Patient appears uncomfortable at time of initial assessment. She was given 25 mcg of fentanyl, IV fluids, antiemetics, CT scan was ordered and diagnostic labs. Given her history of recurrent UTIs times like she has been on 3 antibiotics in the past 6 months per . She does have a urologist in [place] but is going to be living locally for the next 4 months. She does not have primary care or urology coverage in [place]. Last antibiotic was completed 2 weeks ago per patient. Diagnostic labs are reassuring, aside from urinalysis which does show evidence of a urinary tract infection. I will write a prescription for Macrobid, however patient is also having some loose stools it sounds like it is not diarrhea per patient's . Patient is resting comfortably at time of reassessment and she has not had any episodes of vomiting throughout this encounter. CT abdomen pelvis per radiology interpretation my review shows evidence of colitis and possibly cystitis. Will initiate Pyridium for bladder discomfort, Macrobid for UTI. There is possible colitis, however I am hesitant to prescribe medication for this as her stools have been more loose than actual diarrhea per who does assist patient with activities of daily living. She is placed on list for follow-up with urology given recurrent UTI urinary tract infections and placed on list for establishing care with primary care physician locally. Discharged home in the care of her prescription sent to her requested pharmacy in [place]. Pending urine culture. Supplies were given to return stool sample Quality:[facility] Health Related Social Needs: No Data to Display PFSH All Active Problems (Updated 11/18/23 @ 00:05 by MAYRA BENITEZ) Colitis (Acute) Abdominal pain (Acute) Altered mental status (Acute) Dementia (Chronic) UTI (urinary tract infection) (Acute) Social History Smoking/Tobacco Use Status: Former Tobacco Use Smoking risk assessment performed?: Yes
--- NOTE | 2023-11-17 15:19 | DI.VRAD_ITS ---
PROCEDURE INFORMATION: Exam: CT Abdomen And Pelvis With Contrast Exam date and time: 11/17/2023 1:52 PM Age: 73 years old Clinical indication: Abdominal pain TECHNIQUE: Imaging protocol: Computed tomography of the abdomen and pelvis with contrast. COMPARISON: CT ABDOMEN PELVIS W 30/12/2022 15:44 FINDINGS: Lungs: Bibasilar atelectasis. Diaphragm: Hiatal hernia. Liver: Normal. No mass. Gallbladder and bile ducts: Mild dilatation of the intrahepatic biliary ducts. Common bile duct measures 0.78 cm. Pancreas: Normal. No ductal dilation. Spleen: Normal. No splenomegaly. Adrenal glands: Normal. No mass. Kidneys and ureters: Stable left renal atrophy. Again noted dilated right and left renal calices and renal pelvis. Normal-appearing ureters. Stomach and bowel: Fluid distended stomach. Fluid distended 2nd portion of the duodenal with thickened wall. Abnormal bowel wall thickening of the jejunum. Normal appearing distal small bowel. Diverticuli involving the sigmoid colon. Air and fluid distended cecum. Appendix: No evidence of appendicitis. Intraperitoneal space: Unremarkable. No free air. No significant fluid collection. Vasculature: Atherosclerotic disease. Lymph nodes: Unremarkable. No enlarged lymph nodes. Urinary bladder: Abnormal thickened irregular bladder wall with stranding of the adjacent fat and mucosal enhancement of concern for cystitis. Reproductive: Unremarkable as visualized. Bones/joints: Multilevel degenerative changes of the spine. Decreased bone mineralization. Soft tissues: Unremarkable. IMPRESSION: 1. Abnormal thickened proximal small bowel consistent with an inflammatory or infectious process. 2. Abnormal bladder wall thickening with stranding of the adjacent fat consistent with cystitis. 3. Additional findings as discussed above. Dictated and Authenticated by: Layne Womack MD. Ordering:JACQUELIN Aaron MD
[2023-11-17 15:30] LABS: Bilirubin Negative (Negative); Blood Negative (Negative); Clarity Cloudy (Clear); Glucose Negative (Negative); Ketones Negative (Negative); Leukocyte Esterase Small (Negative); Nitrite Negative (Negative); Specific Gravity <= 1.005 (1.005-1.025); pH 5.5 (5-8)
[2023-11-17 15:35] LABS: Bacteria Many HPF (Negative); Epithelial Cells Rare HPF (Negative); RBC Negative HPF (0-2); WBC 20-50 HPF (0-5)
[2023-11-17 15:36] LABS: C & S Indicated? Yes; Casts Negative LPF (Negative); Crystals Negative HPF (Negative); Mucus Negative (Negative)
--- NOTE | 2023-11-17 16:04 | NUR.NOTE ---
Referral faxed to [facility] Urology for recurrent UTI's. JOCELYN. Referral faxed to Randy Wiley, [facility]; who is identification and records commander for telephone call; for needs PCP, establish care, advanced dementia, UTI. JOCELYN. Nursing Note:
[2023-11-17] MEDS: Metoclopramide 10 MG TAB PO (16:08)
--- NOTE | 2023-11-17 18:22 | ED.FU.B_ITS ---
Date of service: 11/17/23 Time of Service: 18:23 Follow Up Plan: Received call from Dr. Mendenhall, and [facility] radiologist. Patient is noted to have colitis in the descending colon. Unclear etiology, will treat as diverticulitis while awaiting C. difficile results. As she was prescribed nitrofurantoin for UTI, will change to Augmentin 875 3 times daily x 7 days. I did call patient's Jay after being unable to reach [facility] on her cell phone-advised him to change in antibiotic and the importance of obtaining stool culture. He is agreeable with plan of care, will cotton picker Rx in the morning.
== END 2023-11-17 16:27 | disposition home or self-care (01) ==
PROVIDERS: Emergency Provider Physician Assistant
DX: N39.0 Urinary tract infection, site not specified (principal); K52.9 Noninfective gastroenteritis and colitis, unspecified; R10.30 Lower abdominal pain, unspecified; R00.1 Bradycardia, unspecified; F03.90 Unspecified dementia, unspecified severity, without behavioral disturbance, psychotic disturbance, mood disturbance, and anxiety; Z79.82 Long term (current) use of aspirin; Z87.891 Personal history of nicotine dependence
CPT/HCPCS: 80053; 83690; 87077; 93005; 96360; 96361; 99285; 74177; 81003; 81015; 85025; 87086; 87186; 93010; 99284; J2765; J3010; J3490

== ENCOUNTER → 2023-11-27 10:41 | Outpatient (BNVA) | payer MEDICARE, SELFPAY | PROVIDERS: Visit Provider Nurse Practitioner Gerontology | DX: R82.998 Other abnormal findings in urine (principal); F03.90 Unspecified dementia, unspecified severity, without behavioral disturbance, psychotic disturbance, mood disturbance, and anxiety | CPT/HCPCS: 51798; 81003; 99215 ==

== ENCOUNTER 2023-11-27 16:13 | Outpatient (REF) | payer MEDICARE, SELFPAY | END 2023-11-27 16:14 | disposition home or self-care (01) | LOC: LBN 16:13 | PROVIDERS: Visit Provider Nurse Practitioner Gerontology | DX: N39.0 Urinary tract infection, site not specified (principal) | CPT/HCPCS: 87086 ==

== ENCOUNTER 2024-01-03 10:20 | Emergency (ER) | payer MEDICARE, SELFPAY ==
[2024-01-03] VITALS (76 sets, daily range): BP systolic 72–173; BP diastolic 30–120; PULSE 53–120; RESP 11–35; TEMP 36.5; O2SAT 96
--- NOTE | 2024-01-03 10:15 | RT.EKG_ITS ---
APPROVED REPORT Exam: Resting ECG Reason for Exam: Chest pain Patient Location: E HR:70 bpm ECG Measurements Heart Rate 70 AXIS [place] 180 P 47 QRSd 88 QRS 22 QT 422 T 44 QTc 455 Conclusion Sinus rhythm...normal P axis, V-rate 60- 99
--- NOTE | 2024-01-03 10:15 | DI.RAD_ITS ---
Exam(s) XR PORTABLE CHEST AP EXAM: XR PORTABLE CHEST AP CLINICAL HISTORY: Chest pain, AMS TECHNIQUE: 2D digital imaging was performed of the chest. One image was obtained. An AP view was ob tained. COMPARISON: CR,XR XR CHEST 2V PA LATERAL from 12/30/2022 FINDINGS: MEDIASTINUM: Normal. HEART: Normal. PULMONARY VASCULATURE: Normal. LUNGS: Mild stable bronchial wall thickening. No focal consolidating infiltrates. PLEURAL SPACE: No pleural effusion or pneumothorax. BONE:Within normal limits for the patient's age. OTHER FINDINGS:Normal. IMPRESSION: No acute pulmonary findings. No acute change compared to the prior examination. DATA REPOSITORY: RADIATION DOSE DELIVERED:
--- NOTE | 2024-01-03 10:21 | DI.CT_ITS ---
Exam(s) CT HEAD WO EXAM: CT HEAD WO CLINICAL HISTORY: AMS, Hx Dementia. TECHNIQUE: Imaging Protocol: Axial computed tomography images with coronal and sagittal reformatted images were created and reviewed COMPARISON: CT HEAD WITHOUT STROKE PROTOCOL from 11/27/2017 FINDINGS: Ventricles and Extra axial spaces: Normal in size and morphology for the patient's age. Hemorrhage: None. Cerebral parenchyma: No mass effect. No evidence of an acute territorial infarct. Midline shift: None. Brainstem/Cerebellum: Normal. Calvarium: Normal. Visualized Paranasal sinuses/Mastoids: Clear. Soft Tissues: Unremarkable. IMPRESSION: No acute intracranial process. RADIATION DOSE DELIVERED: Total DLP DATA REPOSITORY: All CT scans at this facility are submitted to the National Radiology Data Registry (NRDR) Dose Index Registry (DIR) with the [employer] (ACR). RADIATION OPTIMIZATION: All CT scans at this facility use at least one of these dose optimization te chniques: automated exposure control; mA and/or kV adjustment per patient size (includes targeted exa ms where dose is matched to clinical indication); or iterative reconstruction.
--- NOTE | 2024-01-03 10:25 | W.ED.GENAD ---
Discharge Plan Disposition Patient Disposition: Home Condition: Stable Discharge Details Clinical Impression: Altered mental status, Dementia Primary Care Provider: Unknown,Unknown ED Provider: Agnieszka Christy Home Meds and New Rx's Prescriptions: New olanzapine [Zyprexa] 2.5 mg tablet 2.5 mg PO QHS Qty: 10 0RF Continued phenazopyridine [Pyridium] 100 mg tablet 100 mg PO TID cephalexin 500 mg tablet 500 mg PO TID Qty: 21 0RF Rx Instructions: Take as directed to treat UTI donepezil 10 MG tablet 10 mg PO HS gabapentin 300 MG capsule 200 mg PO HS aspirin [Aspirin Low-Strength] 81 MG tablet,chewable 81 mg PO DAILY phenazopyridine [Pyridium] 100 mg tablet 100 mg PO BID Qty: 6 0RF alendronate 70 mg Tablet 70 mg PO DAILY chlorpheniramine-pseudoephed 4-60 mg Tablet 1 tab PO DAILY Qulipta 30 mg Tablet 30 mg PO DAILY Discharge Instructions Instructions: Caring for someone with Alzheimer disease or dementia, Dementia ED Additional Instructions: Please give the medications as directed. This may cause increase sedation. May take the zyprexa daily as needed for agitation. No evidence of urinary tract infection today. Please continue to attempt increase oral intake, for her to take her medications because this will help her. Return to the ER for any concerns, falls, nausea vomiting diarrhea weakness on one side of the body or the other. Keep your follow-up appointment with your neurologist at home as previously scheduled. HPI <Althea Garcia NP - Last Filed: 01/03/24 19:11> General Mode of arrival: EMS. Date/Time Provider Initiated Documentation: 01/03/24 10:21. Limitations to Documentation: altered mental status. Information obtained by: patient, RN/MD, EMS, RN notes reviewed and old records reviewed. HPI Narrative: 73-year-old female presents to the ED via EMS with chief complaint of altered mental status. Progressively worsening over the last 48 hours. Per report patient has had decreased oral intake, increased aggression and combativeness to her yesterday at this morning. Patient refused to take her morning meds. is concerned about possible urinary tract infection patient does have a history of advanced dementia and recurrent UTIs. On initial exam, vital signs are stable. Patient is responsive to verbal stimulus, she is awake responds to questions however she is obviously confused. 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 No masses no guarding palpated. Related Data Home Medications ?Medication ?Instructions ?Recorded ?Confirmed aspirin 81 mg chewable tablet 81 mg PO DAILY 11/27/17 11/17/23 (Aspirin Low-Strength) donepezil 10 mg tablet 10 mg PO HS 11/27/17 11/17/23 gabapentin 300 mg capsule 200 mg PO HS 11/27/17 11/17/23 alendronate 70 mg tablet 70 mg PO DAILY 12/30/22 11/17/23 chlorpheniramine-pseudoephedrine 4 1 tab PO DAILY 12/30/22 11/17/23 mg-60 mg tablet atogepant 30 mg tablet (Qulipta) 30 mg PO DAILY 12/31/22 11/17/23 phenazopyridine 100 mg tablet 100 mg PO BID 6 doses #6 tabs 11/17/23 (Pyridium) cephalexin 500 mg tablet 500 mg PO TID #21 tabs 11/27/23 11/27/23 phenazopyridine 100 mg tablet 100 mg PO TID 11/27/23 (Pyridium) olanzapine 2.5 mg tablet (Zyprexa) 2.5 mg PO QHS #10 tabs 01/03/24 Previous Rx's ?Medication ?Instructions ?Recorded phenazopyridine 100 mg tablet 100 mg PO BID 6 doses #6 tabs 11/17/23 (Pyridium) cephalexin 500 mg tablet 500 mg PO TID #21 tabs 11/27/23 olanzapine 2.5 mg tablet (Zyprexa) 2.5 mg PO QHS #10 tabs 01/03/24 Allergies Allergy/AdvReac Type Severity Reaction Status Date / Time amitriptyline Allergy unknown Unverified 11/27/23 11:29 codeine Allergy unknown Unverified 11/27/23 11:29 dicyclomine Allergy unknown Unverified 11/27/23 11:29 pregabalin (From Lyrica) Allergy Anaphylaxis Unverified 11/27/23 11:29 General Stated Complaint: AMS/LOC LIZBETH: 3 Review of Systems <Althea Garcia NP - Last Filed: 01/03/24 19:11> Narrative: History limited due to patient mental status, majority of history supplied by EMS and Unobtainable due to mental condition Constitutional Constitutional: Reports as per HPI, Reports difficulty sleeping and Reports poor appetite Neurologic Neurologic: Reports as per HPI, Reports behavioral changes and Reports confusion Psychiatric Psychiatric: Reports behavioral changes and Reports confusion Exam <Althea Garcia CHECK WEIGHER - Last Filed: 01/03/24 19:11> Narrative Exam Narrative: Constitutional: Sleeping, awakens to verbal stimulus, Confused, does answer no to questions. Unable to tell me where she is. Appears stated age. Thin body habitus. Head: Normocephalic, no trauma. Eyes: Pupils 2mm bilaterally, brisk PERRL, Red reflex noted, EOM's intact. Eyelids symmetrical without lesions, discharge, or swelling. ENT: Bilateral TM's WNL, External ear normal to inspection, no mastoid TTP, swelling, or erythema, Nasal turbinates WNL, no nasal discharge. Normal dentition, Posterior pharynx WNL, no exudate. Chest: RRR, Normal S1, S2, distal pulses intact. Resp: Lungs clear to auscultation bilaterally, no wheezes, rales, or rhonchi. Abdomen: Soft, non-distended, Normoactive bowel sounds all 4 quads. Tenderness with palpation to bilateral lower abdomen. Musculoskeletal: Normal gait, Moves all 4 extremities without difficulty. Skin: No suspicious rashes or lesions. Capillary refill less than 2 sec. Neurologic: Cranial nerves II-XII intact. Confused and combative. Motor: No deficits noted. Sensory: Intact bilaterally all 4 extremities. Hematologic/Lymphatic: No ecchymosis, no lymphadenopathy. Course <Althea RubinROSE campos - Last Filed: 01/03/24 19:11> Vital Signs Vital signs: Vital Signs Temperature 36.5 C 01/03/24 10:20 Pulse 74 01/03/24 10:20 Respiratory Rate 20 01/03/24 10:20 Blood Pressure 115/63 01/03/24 10:20 Pulse Oximetry 96 01/03/24 10:20 Temperature 36.5 C 01/03/24 10:20 Temperature Source Tympanic 01/03/24 10:20 Pulse 74 01/03/24 10:20 Respiratory Rate 20 07/25/24 10:20 Blood Pressure 115/63 07/25/24 10:20 Blood Pressure Position Sitting 01/03/24 10:20 Pulse Oximetry 96 01/03/24 10:20 Oxygen Delivery Method Room Air 01/03/24 10:20 Oxygen Flow Rate 0 01/03/24 10:20 Medical Decision Making <Althea Garcia NP - Last Filed: 01/03/24 19:11> 73-year-old female presents to the ED via EMS with chief complaint of altered mental status. Progressively worsening over the last 48 hours. Per report patient has had decreased oral intake, increased aggression and combativeness to her yesterday at this morning. Patient refused to take her morning meds. is concerned about possible urinary tract infection patient does have a history of advanced dementia and recurrent UTIs. On initial exam, vital signs are stable. Patient is responsive to verbal stimulus, she is awake responds to questions however she is obviously confused. 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 No masses no guarding palpated. Workup ordered including head CT, CT abd, pelvis, EKG, CBC CMP serial troponins and urinalysis. . On chart review she does have a history of duodenitis and ileus back in November. Informed by clinical staff educator that patient is becoming more agitated and picking at monitors and blankets, was at bedside was able to speak with she does appear somewhat agitated. 0.5 mg of lorazepam IV ordered. In order to get the CT done. No evidence of urinary tract infection at this time no leukocytosis chloride 108 creatinine 1.1 does say that she has had about 15 pound weight loss in the last month is gradually progressively gotten worse with mental status and confusion and combative episodes. They are from [place] have been here for the last 2 months. He is requesting medication to assist with her outbursts. Will consider as needed 0.5 tablet of lorazepam for home use. They do have an appointment with her neurologist in [place] on January 16. Will attempt to give a.m. medications here. CT head within normal limits there is extra space in the ventricles. No evidence for mass effect or acute territorial infarct. Patient refusing to take PO medications at this time, will give an additional 0.5mg Lorazepam IVP. stepped away to get something to eat. Will discuss plan of care with and plan to DC home. Discussion with at the bedside, patient continues to be agitated and is combative swinging at staff and attempting to kick . She did rip out her IV. She is refusing p.o. meds. Patient assisted back into bed with clinical staff educator, will order a sitter for patient. The lorazepam 0.5 mg was given IM. She has had a total of 1 mg of lorazepam since being here. Will page hospitalist to discuss admission for confusion decreased appetite and refusal to take her meds. 1516: Spoke with Dr. Cleary, with Hospitalist he recommends trying a low dose Seroquel 25 mg PO if she will take it, if not he agrees to accept patient for admission. 1530: Patient now sleeping, upon further discussion with , he would prefer to see if patient will take the seroquel before taking her home. Care to be handed off to oncoming provider Agnieszka Christy pending further re-evaluation. 1607: Informed by clinical staff educator that patient did take the Seroquel. Will observe for effect. Medical Records Medical records reviewed: Yes I reviewed the patient's medical records. Imaging Data Radiologic Study: Imaging: CT Scan Radiologist's impression: CLINICAL HISTORY: AMS, Hx Dementia. TECHNIQUE: Imaging Protocol: Axial computed tomography images with coronal and sagittal reformatted images were created and reviewed COMPARISON: CT HEAD WITHOUT STROKE PROTOCOL from 11/27/2017 FINDINGS: Ventricles and Extra axial spaces: Normal in size and morphology for the patient's age. Hemorrhage: None. Cerebral parenchyma: No mass effect. No evidence of an acute territorial infarct. Midline shift: None. Brainstem/Cerebellum: Normal. Calvarium: Normal. Visualized Paranasal sinuses/Mastoids: Clear. Soft Tissues: Unremarkable. IMPRESSION: No acute intracranial process. Lab Data Lab results reviewed: Yes I reviewed the patient's lab results. Labs: Laboratory Tests Range/Units 01/03/24 01/03/24 10:56 11:21 WBC (4.4-10.8) 10^3/uL 6.95 RBC (3.93-5.22) 10^6/uL 3.67 L Hgb (11.2-15.7) g/dL 11.6 Hct (36.0-46.0) % 34.9 L MCV (80-95) fL 95 MCH (27.0-33.0) pg 31.6 MCHC (32.0-36.0) % 33.2 RDW (11.7-14.6) % 12.5 Plt Count (130-400) 10^3/uL 160 MPV (8.0-11.0) fL 8.8 Immature Gran % % 0.4 Neutrophils % % 80.4 Lymphocytes % % 12.8 Monocytes % % 5.3 Eosinophils % % 0.4 Basophils % % 0.7 Nucleated RBC % (0.0-0.3) % 0.0 Absolute Neutrophils (1.2-6.7) 10^3/uL 5.58 Absolute Lymphocytes (1.2-3.4) 10^3/uL 0.89 L Absolute Monocytes (0.1-0.8) 10^3/uL 0.37 Absolute Eosinophils (0.0-0.7) 10^3/uL 0.03 Absolute Basophils (0.0-0.2) 10^3/uL 0.05 Sodium (136-145) mmol/L 145 Potassium (3.5-5.1) mmol/L 3.6 Chloride (98-107) mmol/L 108 H Carbon Dioxide (21.0-32.0) mmol/L 29.6 Anion Gap (3-11) mmol/L 7.4 BUN (7-18) mg/dL 10 Creatinine (0.55-1.02) mg/dL 1.1 H Est GFR (CKD-EPI 2020) (mL/min/1.73m2) 53.06 Glucose (74-106) mg/dL 87 Calcium (8.5-10.1) mg/dL 8.9 Magnesium (1.8-2.4) mg/dL 2.0 Total Bilirubin (0.2-1.0) mg/dL 0.68 AST (15-37) U/L 17 ALT (14-59) U/L 17 Alkaline Phosphatase (46-116) U/L 55 Troponin I (< or =60) ng/L < 50 Total Protein (6.4-8.2) g/dL 6.3 L Albumin (3.4-5.0) g/dL 3.3 L Urine Color (Yellow) Yellow Urine Clarity (Clear) Clear Urine pH (5-8) 5.5 Ur Specific [place] (1.005-1.025) 1.025 Urine Protein (Neg-Trace) mg/dL Negative Urine Ketones (Negative) mg/dL Negative Urine Blood (Negative) Trace-intact H Urine Nitrite (Negative) Negative Urine Bilirubin (Negative) Small H Urine Urobilinogen (Up to 0.2) mg/dL 2.0 H Ur Leukocyte Esterase (Negative) Negative Urine RBC (0-2) HPF 0-2 Urine WBC (0-5) HPF 0-2 Ur Epithelial Cells (Negative) HPF Rare Urine Crystals (Negative) HPF Negative Urine Bacteria (Negative) HPF Rare Urine Casts (Negative) LPF 0-2 Hyaline Urine Mucus (Negative) Moderate Ur Culture Indicated? No Urine Glucose (Negative) mg/dL Negative Quality:SDOH Health Related Social Needs: No Data to Display <BRENT Izaguirre - Last Filed: 01/03/24 22:11> 73-year-old female presents to the ED via EMS with chief complaint of altered mental status. Progressively worsening over the last 48 hours. Per report patient has had decreased oral intake, increased aggression and combativeness to her yesterday at this morning. Patient refused to take her morning meds. is concerned about possible urinary tract infection patient does have a history of advanced dementia and recurrent UTIs. On initial exam, vital signs are stable. Patient is responsive to verbal stimulus, she is awake responds to questions however she is obviously confused. 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 No masses no guarding palpated. Workup ordered including head CT, CT abd, pelvis, EKG, CBC CMP serial troponins and urinalysis. . On chart review she does have a history of duodenitis and ileus back in November. Informed by clinical staff educator that patient is becoming more agitated and picking at monitors and blankets, was at bedside was able to speak with she does appear somewhat agitated. 0.5 mg of lorazepam IV ordered. In order to get the CT done. No evidence of urinary tract infection at this time no leukocytosis chloride 108 creatinine 1.1 does say that she has had about 15 pound weight loss in the last month is gradually progressively gotten worse with mental status and confusion and combative episodes. They are from [place] have been here for the last 2 months. He is requesting medication to assist with her outbursts. Will consider as needed 0.5 tablet of lorazepam for home use. They do have an appointment with her neurologist in [place] on January 16. Will attempt to give a.m. medications here. CT head within normal limits there is extra space in the ventricles. No evidence for mass effect or acute territorial infarct. Patient refusing to take PO medications at this time, will give an additional 0.5mg Lorazepam IVP. stepped away to get something to eat. Will discuss plan of care with and plan to DC home. Discussion with at the bedside, patient continues to be agitated and is combative swinging at staff and attempting to kick . She did rip out her IV. She is refusing p.o. meds. Patient assisted back into bed with clinical staff educator, will order a sitter for patient. The lorazepam 0.5 mg was given IM. She has had a total of 1 mg of lorazepam since being here. Will page hospitalist to discuss admission for confusion decreased appetite and refusal to take her meds. 1516: Spoke with Dr. Cleary, with Hospitalist he recommends trying a low dose Seroquel 25 mg PO if she will take it, if not he agrees to accept patient for admission. 1530: Patient now sleeping, upon further discussion with , he would prefer to see if patient will take the seroquel before taking her home. Care to be handed off to oncoming provider Agnieszka Christy pending further re-evaluation. 1607: Informed by clinical staff educator that patient did take the Seroquel. Will observe for effect. 1630, patient accepted from [facility], patient is sleepy, she is calm and cooperative when she awakes. Plan is to discharge patient, feels comfortable plan. Unfortunately when patient was attempted to be discharged, she is too tired which I suspect is from the Seroquel in conjunction with Ativan. At this time patient will need observation until she is able to stand and pivot. She is been overmedicated unfortunately and after 6 hours, she was reassessed and stable for discharge home. She is still tired but able to stand and pivot and feels comfortable discharge. Blood pressure is stable at time of discharge home and patient is at her cognitive baseline. She is no longer combative states she is agreeable to taking her meds at home. will begin a drive home on Sunday of next week for patient will see a neurologist for her progressively worsening dementia.return precautions reviewed and pt expressed understanding prescription for zyprexa 2.5 mg as needed for agitation supplied PFS <Althea Garcia NP - Last Filed: 01/03/24 19:11> All Active Problems (Updated 01/03/24 @ 14:17 by Althea Garcia NP) Abdominal pain (Acute) Altered mental status (Acute) Dementia (Chronic) UTI (urinary tract infection) (Acute) Social History Smoking/Tobacco Use Status: Former Tobacco Use Smoking risk assessment performed?: Yes Substance use type: does not use Additional Social history: PT is unable to respond Sign Out <Althea Garcia NP - Last Filed: 01/03/24 19:11> Sign Out Data: Sign Out Comment: Confusion, hx of dementia, Combative. Not sleeping or taking normal PO medications. Received 1 mg Lorazepam IV here. Pending re-eval after Seroquel 25 mg PO. Last updated by Althea Garcia NP at 01/03/24 16:11
--- NOTE | 2024-01-03 10:30 | DI.CT_ITS ---
Exam(s) CT ABDOMEN PELVIS W EXAM: CT ABDOMEN PELVIS W CLINICAL HISTORY: Abdominal pain, decreased appetite, AMS TECHNIQUE: Imaging Protocol: Axial computed tomography images with coronal and sagittal reformatted images were created and reviewed. CONTRAST MATERIAL: Intravenous: Omnipaque 350 Contrast volume:100 mL Oral: No COMPARISON: CT CT ABDOMEN PELVIS W from 12/30/[address] ABDOMEN PELVIS W from 11/17/2023 FINDINGS: The examination is limited due to patient motion artifact. ABDOMEN: Lung Bases: Normal where visualized. Liver: Normal density. No measurable mass. Portal, Superior Mesenteric, and Splenic Veins: Unremarkable. Gallbladder and Biliary Tract: No radiodense calculus or dilation. Pancreas: Normal density, no abnormal calcifications or inflammatory process. Spleen: Normal. Adrenals: No masses seen. Kidneys: Left renal cortical scarring. Prominence of the renal pelves bilaterally. This is unchange d. No radiodense stones or obstructive uropathy. No masses seen. Abdominal Aorta: Abdominal portion non-dilated. Atherosclerotic calcification is present. Bowel: There is diverticulosis of the colon without evidence of acute diverticulitis. There is no ev idence of bowel wall thickening or obstruction. Appendix is unremarkable. Peritoneal Cavity: No ascites, collection or mesenteric inflammatory response. No free air. Lymph Nodes: Within normal limits. Bones: Within normal limits for the patient's age. Soft Tissues: Unremarkable. PELVIS: Bladder: Symmetric distention, no gross wall thickening. Reproductive Organs: Status post hysterectomy. Lymph Nodes: Within normal limits. Bones: Within normal limits for the patient's age. IMPRESSION: No acute abdominal or pelvic process. RADIATION DOSE DELIVERED: Total DLP DATA REPOSITORY: All CT scans at this facility are submitted to the National Radiology Data Registry (NRDR) Dose Index Registry (DIR) with the [employer] (ACR). RADIATION OPTIMIZATION: All CT scans at this facility use at least one of these dose optimization te chniques: automated exposure control; mA and/or kV adjustment per patient size (includes targeted exa ms where dose is matched to clinical indication); or iterative reconstruction.
[2024-01-03 11:07] LABS: Abs Immature Grans 0.03 10^3/uL (0.0-0.06); Absolute Basophil Count 0.05 10^3/uL (0.0-0.2); Absolute Eosinophil Count 0.03 10^3/uL (0.0-0.7); Absolute Lymphocyte Count 0.89 10^3/uL (1.2-3.4); Absolute Monocyte Count 0.37 10^3/uL (0.1-0.8); Absolute Neutrophil Count 5.58 10^3/uL (1.2-6.7); Basophils % 0.7 %; Eosinophils % 0.4 %; HCT 34.9 % (36.0-46.0); HGB 11.6 g/dL (11.2-15.7); Immature Grans % 0.4 %; Lymphocytes % 12.8 %; MCH 31.6 pg (27.0-33.0); MCHC 33.2 % (32.0-36.0); MCV 95 fL (80-95); MPV 8.8 fL (8.0-11.0); Monocytes % 5.3 %; Neutrophils % 80.4 %; Platelet Count 160 10^3/uL (130-400); RBC 3.67 10^6/uL (3.93-5.22); RDW 12.5 % (11.7-14.6); RDW-SD 43.2 fL; WBC 6.95 10^3/uL (4.4-10.8)
[2024-01-03 11:35] LABS: ALT 17 U/L (14-59); AST 17 U/L (15-37); Albumin 3.3 g/dL (3.4-5.0); Alkaline Phosphatase 55 U/L (46-116); Anion Gap 7.4 mmol/L (3-11); BUN 10 mg/dL (7-18); Bilirubin, Total 0.68 mg/dL (0.2-1.0); CO2 29.6 mmol/L (21.0-32.0); CREATININE 1.1 mg/dL (0.55-1.02); Calcium 8.9 mg/dL (8.5-10.1); Chloride 108 mmol/L (98-107); Estimated GFR 53.06 (mL/min/1.73m2); Glucose 87 mg/dL (74-106); Potassium 3.6 mmol/L (3.5-5.1); Sodium 145 mmol/L (136-145); Total Protein 6.3 g/dL (6.4-8.2); Troponin I < 50 ng/L (< or =60)
[2024-01-03 11:52] LABS: Bilirubin Small (Negative); Blood Trace-intact (Negative); Clarity Clear (Clear); Glucose Negative (Negative); Ketones Negative (Negative); Leukocyte Esterase Negative (Negative); Nitrite Negative (Negative); Specific Gravity 1.025 (1.005-1.025); pH 5.5 (5-8)
[2024-01-03 12:02] LABS: Bacteria Rare HPF (Negative); C & S Indicated? No; Casts 0-2 Hyaline LPF (Negative); Crystals Negative HPF (Negative); Epithelial Cells Rare HPF (Negative); Mucus Moderate (Negative); RBC 0-2 HPF (0-2); WBC 0-2 HPF (0-5)
[2024-01-03] MEDS: LORazepam 2 MG/ML VIAL 0.5 MG IVP ×2 (12:49→14:30)
[2024-01-03] MEDS: Omnipaque 350 MG/ML 100 ML BTL IJ (13:03)
[2024-01-03] MEDS: QUEtiapine 25 MG TAB PO (15:58)
--- NOTE | 2024-01-03 16:01 | NUR.NOTE ---
PT is eating meal tray Nursing Note:
[2024-01-03 16:26] LABS: Lab Add On Test DONE
[2024-01-03 16:47] LABS: Salicylate < 2.8 mg/dL (<2.8)
[2024-01-03 16:48] LABS: Acetaminophen < 2 ug/mL (10-30)
[2024-01-03 16:52] LABS: *AMPHETAMINES SCREEN URINE Negative (Negative); *BARBITURATES SCREEN URINE Negative (Negative); *BENZODIAZEPINES SCREEN URINE Negative (Negative); Cannabinoids THC Negative (Negative); Cocaine Screen,Urine Negative (Negative); METHADONE URINE SCREEN Negative (Negative); OPIATES URINE SCREEN Negative (Negative)
[2024-01-03 16:54] LABS: Tricyclic Antidepressants Negative (Negative)
--- NOTE | 2024-01-03 17:50 | NUR.NOTE ---
PT is extremely drowsy and not easily woken. ED provider notified. Nursing Note:
--- NOTE | 2024-01-03 20:19 | NUR.NOTE ---
Nursing Note: Pt still sleepy at this time, vitally stable. Waiting for patient to be more awake to send home with
== END 2024-01-03 22:06 | disposition home or self-care (01) ==
PROVIDERS: Registered Nurse Emergency; Emergency Provider Physician Assistant
DX: R41.82 Altered mental status, unspecified (principal); F03.911 Unspecified dementia, unspecified severity, with agitation; Z79.82 Long term (current) use of aspirin; Z87.891 Personal history of nicotine dependence
CPT/HCPCS: 80053; 80307; 93005; 96374; 96376; 99285; 70450; 71045; 74177; 80329; 81003; 81015; 83735; 84484; 85025; 93010; J2060; J3490

== ENCOUNTER 2024-01-04 20:29 | Inpatient (IN) | payer MEDICARE, SELFPAY ==
[2024-01-04 20:37] VITALS: BP 144/69; PULSE 79; RESP 15; TEMP 36.7; O2SAT 99
[2024-01-04 20:40] VITALS: BP 144/69; PULSE 79; RESP 15; TEMP 36.7; O2SAT 99
[2024-01-04] MEDS: OLANZapine 2.5 MG TAB PO (21:46)
--- NOTE | 2024-01-04 22:24 | NUR.NOTE ---
Nursing Note: Assumed care of pt. Report from Herman. Pt standing at door way at bedside. MD going to see them to see what they wish to do next.
[2024-01-04] MEDS: clonazePAM 0.5 MG TAB PO (23:11)
--- NOTE | 2024-01-04 23:54 | NUR.NOTE ---
Nursing Note: pt and spouse on with telepsych
--- NOTE | 2024-01-04 23:57 | ED.GENADUL_ITS ---
Discharge Plan Disposition Patient Disposition: Home Condition: Stable Discharge Details Clinical Impression: Dementia, Agitation Primary Care Provider: Unknown,Unknown ED Provider: Agnieszka Christy Discharge Data Discharge Date/Time-TO BE ENTERED AT DEPARTURE: 01/05/24 01:39 HPI General Date/Time Provider Initiated Documentation: 01/04/24 20:34 . HPI Narrative: 73-year-old female presenting with history of agitation with dementia history for her third visit in the past week. Has been reports difficulty controlling combative behavior and agitation at home. Patient is restless and wants sleep. She has been refusing to take her medications for Alzheimer's dementia. Patient had a complete assessment in the emergency department yesterday with a CT head and diagnostic blood work which did not show acute medical cause of patient's complaints. She is to return to [place] by motor vehicle on Sunday and has been very concerned that he will be able to safely return home. Yesterday 25 of Seroquel was attempted and unsuccessful secondary to polypharmacy per . He also tried the 2.5 mg of Zyprexa which were initiated this morning, however patient remains combative and agitated and unwilling to take her medications for has been. Related Data Home Medications ?Medication ?Instructions ?Recorded ?Confirmed aspirin 81 mg chewable tablet 81 mg PO DAILY 11/27/17 11/17/23 (Aspirin Low-Strength) donepezil 10 mg tablet 10 mg PO HS 11/27/17 11/17/23 gabapentin 300 mg capsule 200 mg PO HS 11/27/17 11/17/23 alendronate 70 mg tablet 70 mg PO DAILY 12/30/22 11/17/23 chlorpheniramine-pseudoephedrine 4 1 tab PO DAILY 12/30/22 11/17/23 mg-60 mg tablet atogepant 30 mg tablet (Qulipta) 30 mg PO DAILY 12/31/22 11/17/23 phenazopyridine 100 mg tablet 100 mg PO BID 6 doses #6 tabs 11/17/23 (Pyridium) cephalexin 500 mg tablet 500 mg PO TID #21 tabs 11/27/23 11/27/23 phenazopyridine 100 mg tablet 100 mg PO TID 11/27/23 (Pyridium) olanzapine 2.5 mg tablet (Zyprexa) 2.5 mg PO QHS #10 tabs 01/03/24 clonazepam 0.5 mg tablet (Klonopin) 0.25 mg (1/2 x 0.5 mg) PO QHS #10 01/04/24 tabs olanzapine 5 mg tablet (Zyprexa) 5 mg PO DAILY #14 tabs 01/04/24 Previous Rx's ?Medication ?Instructions ?Recorded phenazopyridine 100 mg tablet 100 mg PO BID 6 doses #6 tabs 11/17/23 (Pyridium) cephalexin 500 mg tablet 500 mg PO TID #21 tabs 11/27/23 olanzapine 2.5 mg tablet (Zyprexa) 2.5 mg PO QHS #10 tabs 01/03/24 clonazepam 0.5 mg tablet (Klonopin) 0.25 mg (1/2 x 0.5 mg) PO QHS #10 01/04/24 tabs olanzapine 5 mg tablet (Zyprexa) 5 mg PO DAILY #14 tabs 01/04/24 Allergies Allergy/AdvReac Type Severity Reaction Status Date / Time amitriptyline Allergy unknown Unverified 11/27/23 11:29 codeine Allergy unknown Unverified 11/27/23 11:29 dicyclomine Allergy unknown Unverified 11/27/23 11:29 pregabalin (From Lyrica) Allergy Anaphylaxis Unverified 11/27/23 11:29 General Stated Complaint: AMS/LOC LIZBETH: 4 Exam Narrative Exam Narrative: Is alert and cooperative on assessment, pupils equal round reactive to light and accommodation, no visible sign of trauma, no respiratory distress, cardiac rate rhythm regular, alert and at baseline Course Vital Signs Vital signs: Vital Signs Temperature 36.7 C 01/04/24 20:37 Pulse 79 01/04/24 20:37 Respiratory Rate 15 01/04/24 20:37 Blood Pressure 144/69 H 01/04/24 20:37 Pulse Oximetry 99 01/04/24 20:37 Temperature 36.7 C 01/04/24 20:40 Temperature Source Tympanic 01/04/24 20:40 Pulse 79 01/04/24 20:40 Respiratory Rate 15 01/04/24 20:40 Respiratory Effort Normal 01/04/24 20:40 Respiratory Depth Normal 01/04/24 20:40 Respiratory Pattern Normal 01/04/24 20:40 Blood Pressure 144/69 H 01/04/24 20:40 Blood Pressure Position Sitting 01/04/24 20:40 Pulse Oximetry 99 01/04/24 20:40 Oxygen Delivery Method Room Air 01/04/24 20:40 Oxygen Flow Rate 0 01/04/24 20:37 Pain Level 0 01/04/24 20:37 Medical Decision Making 73-year-old female presenting for her third visit for Alzheimer's dementia and acute agitation. Had a complete assessment for altered mental status yesterday that did not show acute medical cause of patient's complaints including urinalysis. Patient has become progressively more agitated and combative and has been is unable to manage her dementia at home. She is refusing to take her meds and he is concerning that she is spiraling. She lives predominantly in [place] and they were out visiting family they have been out for approximately 6 or 7 weeks. At this time I do not think blood work will show any additional findings. Has been is requesting some help so that he and the patient can return home safely. [facility] psych consultation in was initiated and pending at this time for medical management. Patient will stay in hospital overnight for observation at this time. Quality:SDOH Health Related Social Needs: No Data to Display PFSH All Active Problems (Updated 01/05/24 @ 00:40 by Jose Eduardo Rosenberg) Osteoporosis (Chronic) Migraine (Chronic) Frequent UTI (Chronic) Dementia with behavioral disturbance (Acute) Agitation (Acute) Dementia (Chronic) Abdominal pain (Acute) Altered mental status (Acute) Dementia (Chronic) UTI (urinary tract infection) (Acute) Social History Smoking/Tobacco Use Status: Former Tobacco Use Smoking risk assessment performed?: Yes Substance use type: does not use Additional Social history: PT is unable to respond
--- NOTE | 2024-01-05 00:16 | PSYCO_ITS ---
Date of service: 01/04/24 Time of Service: 00:16 Summary Note PSYCHIATRY CONSULT NOTE: INITIAL EVALUATION Date/Time:?01/05/2024 12:15:24 AM Name:Tonya Hodge :?1950 Location of the patient:?[facility] ED Consulting Array Clinician:?Alejandro Goodman Location of the clinician:?[place] Length of Consult:?45 minutes SUMMARY 73-year-old female, with history of dementia, history of aggressive behavior, with no current excessive drug use, no history of self-harming/suicidal behavior, no past psychiatric hospitalizations, referred to hospital by family for agitation, altered mental status. Patient has been in the emergency department several times with agitation and aggression, particularly toward her . She has advanced dementia and that he traveled to [place] for the summer. They are from [place] and due to leave to go back next week. indicates that she has declined over the past 2 weeks particularly, with increased episodes of agitation and aggression. She appears to have had some difficulty tolerating medications provided so far. From what I am seeing in her record, she got a combination of Seroquel 25 mg and is reported to me Ativan 3 mg in the ED last night. This sedated her to the point where she slept for 8 hours. She was subsequently sent home with Zyprexa 2.5 mg. Her said they gave this to her around 6 PM did not seem to help anything, however she got another dose in the ER and now it appears that she is potentially a fall risk. She is getting up, wobbly and unsteady on her feet, but she is redirectable and calmer. At this point, it appears that Zyprexa 2.5 mg may not be effective but 5 mg at a time may be enough that she is a risk to fall and again potentially too much. If she is to be admitted I would recommend a retrial of Seroquel starting with 12.5 mg twice daily. This could be titrated to 25 mg twice daily if tolerated and needed for behavioral control. I would avoid giving her Ativan if at all possible, as this can frequently increase confusion and sedation. If possible, she also needs to get an EKG to get a baseline QTc.Patient has primary neurocognitive disorder. Patient does not appear to be at acute risk to self or others due to psychiatric illness or to require inpatient psychiatric hospitalization. Working Diagnoses:? F03.91 Unspecified dementia with behavioral disturbance Rule Out Diagnoses:? CPT Codes:?83177 - Psychiatric Diagnostic Evaluation with Medical Services PLAN Disposition:? * Discharge type: Discharge when medically stable * Safety planning: Patient understands and agrees with discharge plan, is aware that should symptoms worsen to return to the ED or call 911 * Resource information to be provided by site: information about patient's diagnosis, treatment recommendations, including dosage and side effects of any prescribed medications ? Observation level ? Psychiatric 1:1 needed??Initiate psych 1:1 OR Close observation per hospital protocol. when not present, due to confusion, wandering and fall risk Work-up:?EKG Pharmacological:? * As above * Is patient psychotic? - No; * Informed consent: Patient is unable to understand risks benefits of or consent to medications in their current mental state. Without medications patient will likely deteriorate further and possibly place themselves or others at risk. , patient?s surrogate decision maker, has given informed consent for medications. Follow up needed while in the hospital??As needed for management of behavior or change in mental status Other:? * GENERAL GERIATRIC PRECAUTIONS: frequent re-orientation, family contact when possible, maximize uninterrupted periods of sleep, limit staff changes as feasible. Provide patient with assistive devices ie hearing aids/glasses to reduce confusion and disorientation. * Dementia/Delirium: AVOID BENZODIAZEPINES, ANTICHOLINERGICS, ANTIHISTAMINES, AND OTHER SEDATING MEDICATIONS, which may PRECIPITATE and worsen delirium * Parts of this note were dictated using voice recognition software and may contain small irregularities and grammatical errors which are unintentional. * If questions arise about the psychiatric care of this patient, please call the [facility]?to request a follow-up consult. ?Please do not contact me individually through the EMR chat as I am not?regularly logged on to?this system. 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 Patient consented to proceed with the telehealth visit. Requested by:?BRENT Izaguirre Sources of information:?Patient, medical record History of Present Illness:? 73-year-old female, living with spouse/partner, , retired, with history of dementia, history of aggressive behavior, with no current excessive drug use, no history of self-harming/suicidal behavior, no past psychiatric hospitalizations, referred to hospital by family for agitation, altered mental status. UDS not ordered, Alcohol not ordered. In the hospital, patient has been agitated. Patient presented to the emergency department on 01/03/2024 with altered mental status and history of dementia. This was progressively worsening over the prior 48 hours including aggression and combativeness toward her . She was refusing to take her morning meds. was concerned about possible UTI as she has a history of recurrent UTIs and agitation. No evidence of urinary tract infection was found at that time and she was combative, agitated, swinging at staff and attempted to kick her . Patient was prescribed Seroquel and did take it in the ED. They attempted to discharge her, but she was too sedated. It was suspected that this was due to the combination of Seroquel with Ativan that she had received earlier. She did recover from this and was determined to be safe for discharge. They are from [place] and were to start to drive home Sunday of next week. They will follow-up with their current neurologist. Patient has subsequently cme back to the ED. Spoke with Agnieszka KENNEDY. This is her 3rd visit to the ED. She has been very agitated and isnt on anything for mood or sleep. Went back and was combative with , agitated, refusing to take any of her meds. He is having trouble managing her at home. Plan was to admit her overnight. She got seroquel 25mg and was started on zyprexa to go home 2.5mg daily. She was still agitated and fine with them abut not with her .. On psychiatric evaluation, patient is unreliable, unable to give clear history. says they have been here for the summer, and at one location for 8 weeks. They were doing OK for 4-6 weeks, but she has gotten more agitated the last 2 weeks. He sasy she has gone through periods like this before, but much milder. He says they left the ED. She got really tired but they did go home. She went right to bed and slept well. TThis morning she got up around 8 am. She took her meds with breakfast and had a good day until about 12-1 pm. She started to get agitated around 1-2pm and this worsened as the day went on. he says he sees some sundowning even without the meds in the picture. Patient currently has recieved zyprexa 5mg ind divided doses. She got one at home at 6 pm, he says it didnt really do anyting, so she got another dose here in [facility] ED. She is endorsing eing tired, looks unsteady, and isnt answering questions.. Collateral Contacted Contacted in room--. Collateral reports patient poses no immediate safety concerns. Collateral reports patient has no access to firearms. PSYCHIATRIC REVIEW OF SYSTEMS (symptoms in past two weeks) Pertinent Positives:?irritability/aggressive behavior/agitation/impulsivity Pertinent Negatives:?no depressed mood/no anhedonia/no hopelessness/no insomnia/no command hallucinations/no anxiety/no panic attacks PSYCHIATRIC HISTORY Past Psychiatric Diagnoses/Problems:?dementia Psychiatric Treatment:?Hospitalizations:?no past psychiatric hospitalizations ???Other Past treatment:?none ???Current treatment:?no reported current psychiatric treatment Drug/Alcohol History ???Current excessive drug/alcohol use:?none ???Past excessive drug/alcohol use:?none ???Drug/alcohol use comment:?Treatment:?none ???Withdrawal symptoms:?none ???UDS results:?UDS not ordered ???BAL results:?not ordered ???Active withdrawal Protocol:? Stressors:?neurocognitive dysfunction Trauma:?none Family Psychiatric History:?none HEALTH HISTORY Medical Problems:? deemed medically stable Is patient linked with PCP??yes Psychiatric and other clinically relevant medications:?Zyprexa 2.5 mg nightly, donepezil 10 mg nightly, gabapentin and 200 mg nightly Allergies/Adverse Medication Reactions:?Agnieszka Christy Physical Findings:?no clinically significant changes in vital signs, no clinically significant abnormal lab values, QTc unavailable DEMOGRAPHICS/SOCIAL HISTORY Gender:?female Living Situation:?living with spouse/partner Relationship Status:? Education:?unknown Employment:?retired Social Support Network:?supportive social network of family or friends Legal History:?none Special Considerations:?none RISK EVALUATION Suicidality/self-injury:?no history of suicidal/self-harming behavior Primary Suicide Screening (PSS-3) 1. In the past two weeks, have you felt down, depressed, or hopeless??NO 2. In the past two weeks, have you had thoughts of killing yourself??NO 3. In your lifetime, have you ever attempted to kill yourself??NO 3a. Within the past 6 months??NO ESS-6 Secondary Screen ( If #2 is yes or #3a is yes within the past 6 months, then complete secondary screen) 1. Positive on PSS-3 questions 2 & 3 ? active suicidal ideation with a past attempt??Screen not applicable 2. Have you been thinking about how you might kill yourself??Screen not applicable 3. Have you had some intention of acting on your thoughts??Screen not applicable 4. Lifetime psychiatric hospitalization??Screen not applicable 5. Has drinking or substance abuse ever been a problem for you??Screen not applicable 6. Current irritability, agitation, or aggression??Screen not applicable PSS-3/ESS-6 Secondary Screen Scoring:?Low Risk-PSS3 screen negative PSS-3/ESS-6 Scoring Interpretation Legend PSS-3 screen incomplete [Blank PSS-3 questions #2 OR #3a] PSS-3 screen unable to assess [Unable to Assess responses on PSS-3 questions #2 AND #3a] Mild [No current attempt AND No suicide plan or intent AND Score (0-2)] Moderate [No current attempt AND Active suicidal ideation with plan or intent (not both) OR Score (3-4)] Severe [Current attempt OR Suicide plan and intent OR Score (5-6)] HI/Violence/Property Destruction:?Yes Access to Firearms:?none. Collateral reports patient has no access to firearms. Grave disability/Poor self-care:?no Psychosis:?No Protective Factors:? High Utilization Criteria:?none Signs of Secondary Gain:?none MENTAL STATUS EXAM Appearance and Attire:? Normal, Well groomed Psychomotor agitation:?fidgety, attempts to get up but clearly unsteady Attitude and behavior:? Cooperative Speech:? Selectively mute Mood:? Euthymic Affect:? Constricted Thought Process:? Thought content:?unable to assess Perception:?unable to assess Intelligence:?unable to assess Abstraction:?unable to assess Language:?unable to assess Orientation:? Oriented to person, Disoriented to place, Disoriented to time, Disoriented to situation Sensorium:? Drowsy Knowledge:?unable to assess Memory:?unable to assess Insight:? Severe impairment Judgment:? Severe impairment SUMMARY RISK ASSESSMENT Current Suicide Risk Elevated??PSS-3/ESS-6 Scoring: Low Risk-PSS3 screen negative? Current Violence Risk Elevated??undetermined Issues with ability to care for self.?No Alejandro Goodman, , [facility]
--- NOTE | 2024-01-05 00:22 | NUR.NOTE ---
Nursing Note: pt is now sleeping comfortably
--- NOTE | 2024-01-05 00:35 | HPE_ITS ---
Date of service: 01/05/24 Time of Service: 00:35 Assessment and Plan Assessment and plan (1) Dementia with behavioral disturbance: Start date: 01/05/24 Status: Acute Assessment and plan: This is a 73-year-old lady with end-stage dementia now with behavioral abnormality. On controllable at home with patient not able to take care of patient. He does want to take her home to [place] by car next week but this is unreasonable. Patient considering local inpatient hospitalization for stabilization prior to transfer back to [place] and comfort measures should be considered if patient is end-stage and not controllable. Another option is long-term inpatient or detention care with the family to visit but not be the primary caregivers. She was admitted to level 2 for maintenance care and adjustment of oral meds that she has not taken all manage therefore she was admitted for adjustment of meds using IM route as needed. She is requiring soft restraints but will be released as soon as she is controlled with medical therapy. Aricept is not appropriate at this time and may be discontinued after discussion with family. Prognosis is poor. Patient is a DNR/DNI. (2) Frequent UTI: Status: Chronic Assessment and plan: Patient has no evidence of UTI presently to exacerbate her mental status. She did have a UTI in November which is cleared clinically. Continue monitor for recurrent infection with hygiene most likely not adequate. (3) Migraine: Status: Chronic Assessment and plan: No evidence of recurrent migraine but continue outpatient medical therapy on a daily basis for prophylaxis. Patient compliance with oral therapy may be a problem. Qualifiers: Intractability: not intractable Migraine type: periodic headache syndrome Qualified Code(s): G43.C0 - Periodic headache syndromes in child or adult, not intractable (4) Osteoporosis: Status: Chronic Assessment and plan: Continue outpatient medical therapy. The medication needs to be updated with Fosamax being given daily by the method. Most likely should be weekly. Pharmacy can review this medication and directions. Qualifiers: Osteoporosis type: age-related Presence of current pathological fracture: without current pathological fracture Qualified Code(s): M81.0 - Age- related osteoporosis without current pathological fracture History of Present Illness History of Present Illness Chief Complaint: Progressively worsening agitation and altered mental status with dementia Narrative: This is a 73-year-old l female patient who has had frequent UTIs last seen in this ED in November 2023 who presents with a 72 hours escalating agitation with dementia and short-term memory loss end-stage not taking medications as usual. She and her usually summer in [place] and [place]. They were visiting family and she has had combativeness and aggressiveness especially with chaos at home. Her did have an argument with her son which brought his more recent agitation and escalation of behavior. She was seen in the ED today prior to admission and started on Zyprexa with Ativan as needed both at low doses. She returned to the ED with escalating behavior and there was some, between her and her son as above. She did not respond to Seroquel 25 mg orally with Zyprexa 2.5 mg and eventually Ativan with sedation but still attempting to stand and was unsteady. Patient had no acute medical decompensation, therefore she was admitted to level 2 care for inability to return home with her because of agitation and combativeness. Once on [facility] floor the patient became more combative and had to be restrained physically with Zyprexa totaling 7.5 mg IM being given since she would not take oral medications. She did not respond to this and Ativan 1 mg with Benadryl 25 mg and Haldol 2 mg was given IM. She slowly was sedated and stopped taking on the strangers which were ordered stat. After 45 minutes the patient was calm enough sleep but soft restraints 4 points and was comfortably in bed with a sitter to stay with her. She will remain in for 1 restraints until she is calmer and hopefully we can initiate oral therapy as suggested by telepsychiatry in the ED. They did suggest Seroquel 12.5 mg twice daily and if tolerated up to 25 mg twice daily. Did not comment on as needed medication but did not want to avoid benzodiazepines long-term. She may need additional consultation and adjustment of medications if she is not responding to therapy. She may be better served in an inpatient dementia/psychiatric hospital such as alcohol. Her does wish to take her home by car for but this may not be possible if she is agitated and uncooperative, this would be anxiety. Patient is a DNR/DNI. Patient's is her DPOA. Review of Systems Narrative: 13 point review of systems unobtainable with patient's delirium. PFSH All Active Problems (Updated 01/05/24 @ 00:40 by Jose Eduardo Rosenberg) Osteoporosis (Chronic) Migraine (Chronic) Frequent UTI (Chronic) Dementia with behavioral disturbance (Acute) Agitation (Acute) Dementia (Chronic) Abdominal pain (Acute) Altered mental status (Acute) Dementia (Chronic) UTI (urinary tract infection) (Acute) Social History Smoking/Tobacco Use Status: Former Tobacco Use Smoking risk assessment performed?: Yes Substance use type: does not use Additional Social history: PT is unable to respond Meds Allergies and Home Medications Allergies Allergy/AdvReac Type Severity Reaction Status Date / Time amitriptyline Allergy unknown Unverified 11/27/23 11:29 codeine Allergy unknown Unverified 11/27/23 11:29 dicyclomine Allergy unknown Unverified 11/27/23 11:29 pregabalin (From Lyrica) Allergy Anaphylaxis Unverified 11/27/23 11:29 Home Medications ?Medication ?Instructions ?Recorded ?Confirmed ?Type aspirin 81 mg chewable tablet 81 mg PO DAILY 11/27/17 11/17/23 History (Aspirin Low-Strength) donepezil 10 mg tablet 10 mg PO HS 11/27/17 11/17/23 History gabapentin 300 mg capsule 200 mg PO HS 11/27/17 11/17/23 History alendronate 70 mg tablet 70 mg PO DAILY 12/30/22 11/17/23 History chlorpheniramine-pseudoephedrine 4 1 tab PO DAILY 12/30/22 11/17/23 History mg-60 mg tablet atogepant 30 mg tablet (Qulipta) 30 mg PO DAILY 12/31/22 11/17/23 History phenazopyridine 100 mg tablet 100 mg PO BID 6 doses #6 tabs 11/17/23 Rx (Pyridium) cephalexin 500 mg tablet 500 mg PO TID #21 tabs 11/27/23 11/27/23 Rx phenazopyridine 100 mg tablet 100 mg PO TID 11/27/23 History (Pyridium) olanzapine 2.5 mg tablet (Zyprexa) 2.5 mg PO QHS #10 tabs 01/03/24 Rx clonazepam 0.5 mg tablet (Klonopin) 0.25 mg (1/2 x 0.5 mg) PO QHS #10 01/04/24 Rx tabs olanzapine 5 mg tablet (Zyprexa) 5 mg PO DAILY #14 tabs 01/04/24 Rx Exam Narrative Exam Narrative: General: Patient appears appropriate age, flat affect and agitated with yelling out and cursing at staff attempting to restrain patient from hurting herself or staff. Not oriented to person place or time. Moderate to severe distress with agitation and delirium. HEENT: Normocephalic, eyes with pupils equal and reactive to light symmetrically, extraocular movement intact and sclera anicteric. Oropharynx with moist mucosa and fair dentition. Neck: Supple without JVD. Back: Kyphotic without CVA tenderness. Lungs: Bronchovesicular sounds patient with no focalizing rales or rhonchi. Fair aeration. Heart: Regular rate and rhythm with distant heart sounds. No appreciable murmur or gallop with patient not cooperative with exam. Breast: Exam deferred. Abdomen: Scaphoid contour, soft and nontender to palpation with no palpable hepatosplenomegaly. Bowel sounds positive all quadrants. No guarding or rebound. Genitalia/rectal: Exam deferred. Extremities: Without clubbing, cyanosis or pitting edema. Peripheral pulses intact. Skin: Normal color, warm and dry. Neuro: Cranial nerves II through XII gross intact, no focal motor deficits or tremor. Psych: Flattened affect with delirium and no meaningful conversation with patient yelling out and agitated with any restraints. Patient does charge staff at times trying to leave room. She attempted to bite staff. Remote and recent memory not testable. Results Imaging Imaging Studies: EXAM: CT ABDOMEN PELVIS W Date:01/03/2024 CLINICAL HISTORY: Abdominal pain, decreased appetite, AMS TECHNIQUE: Imaging Protocol: Axial computed tomography images with coronal and sagittal reformatted images were created and reviewed. CONTRAST MATERIAL: Intravenous: Omnipaque 350 Contrast volume:100 mL Oral: No COMPARISON: CT CT ABDOMEN PELVIS W from 12/30/[address] ABDOMEN PELVIS W from 11/17/2023 FINDINGS: The examination is limited due to patient motion artifact. ABDOMEN: Lung Bases: Normal where visualized. Liver: Normal density. No measurable mass. Portal, Superior Mesenteric, and Splenic Veins: Unremarkable. Gallbladder and Biliary Tract: No radiodense calculus or dilation. Pancreas: Normal density, no abnormal calcifications or inflammatory process. Spleen: Normal. Adrenals: No masses seen. Kidneys: Left renal cortical scarring. Prominence of the renal pelves bilaterally. This is unchanged. No radiodense stones or obstructive uropathy. No masses seen. Abdominal Aorta: Abdominal portion non-dilated. Atherosclerotic calcification is present. Bowel: There is diverticulosis of the colon without evidence of acute diverticulitis. There is no evidence of bowel wall thickening or obstruction. Appendix is unremarkable. Peritoneal Cavity: No ascites, collection or mesenteric inflammatory response. No free air. Lymph Nodes: Within normal limits. Bones: Within normal limits for the patient's age. Soft Tissues: Unremarkable. PELVIS: Bladder: Symmetric distention, no gross wall thickening. Reproductive Organs: Status post hysterectomy. Lymph Nodes: Within normal limits. Bones: Within normal limits for the patient's age. IMPRESSION: No acute abdominal or pelvic process. EXAM: CT HEAD WO Date:01/03/2024 CLINICAL HISTORY: AMS, Hx Dementia. TECHNIQUE: Imaging Protocol: Axial computed tomography images with coronal and sagittal reformatted images were created and reviewed COMPARISON: CT HEAD WITHOUT STROKE PROTOCOL from 11/27/2017 FINDINGS: Ventricles and Extra axial spaces: Normal in size and morphology for the patient's age. Hemorrhage: None. Cerebral parenchyma: No mass effect. No evidence of an acute territorial infarct. Midline shift: None. Brainstem/Cerebellum: Normal. Calvarium: Normal. Visualized Paranasal sinuses/Mastoids: Clear. Soft Tissues: Unremarkable. IMPRESSION: No acute intracranial process. Labs 01/05/24 05:35 Last Vital Signs Temp 36.7 C 01/04/24 20:40 Pulse 79 01/04/24 20:40 Resp 15 01/04/24 20:40 BP 144/69 H 01/04/24 20:40 Pulse Ox 99 01/04/24 20:40 Time Spent Time spent with Patient: >75 minutes Time was spent: preparing to see the patient(eg.review tests), obtaining and/or reviewing separately otained hiistory, ordering medications,tests, procedures, referring, communicating with other health child care assistant, indepentently interpreting results, care coordination and other (Time at bedside when having to restrain and order behavior potentially harmful controlling IM medications, 30 minutes.)
--- NOTE | 2024-01-05 01:37 | NUR.NOTE ---
Nursing Note: Pt is determined to get up out of bed. Pt is unsteady now on her feet due to the medications we gave her. This nurse was at bedside for a bit and now Payal is sitting with pt. Payal got patient up to walk around and patient attempted to go out the door. Pt to floor in wheelchair with Payal and security.
[2024-01-05] MEDS: Water,Injection,Sterile 10 ML VIAL ×2 (02:52→03:11)
[2024-01-05] MEDS: OLANZapine 10 MG VIAL 2.5 MG IM (02:52)
[2024-01-05] MEDS: OLANZapine 10 MG VIAL 5 MG IM (03:11)
[2024-01-05] MEDS: diphenhydrAMINE 50 MG/ML VIAL 25 MG IM (03:49)
[2024-01-05] MEDS: Haloperidol 5 MG/ML VIAL 2 MG IM (03:49)
[2024-01-05] MEDS: LORazepam 2 MG/ML VIAL 1 MG IM (03:50)
--- NOTE | 2024-01-05 05:24 | W.PC.ACHO ---
Registration Status: Primary Language: Preferred Language: ED Information & Data Chief Complaint AMS/LOC 01/05/24 00:02 Triage Note reports increased 01/04/24 20:37 anxiety and aggression at home. PT has history of dementia that has been worsening recently. Took medications prescribed at this facility, did not seem to help tonight. Most Recent Vital Signs Temperature 36.7 C 01/04/24 20:40 Temperature Source Tympanic 01/04/24 20:40 Pulse 79 01/04/24 20:40 Respiratory Rate 15 01/04/24 20:40 Respiratory Effort Normal, Non-Labored 01/05/24 01:57 Respiratory Depth Normal 01/05/24 01:57 Respiratory Pattern Normal 01/05/24 01:57 Blood Pressure 144/69 H 01/04/24 20:40 Blood Pressure Position Sitting 01/04/24 20:40 Pulse Oximetry 99 01/04/24 20:40 Oxygen Delivery Method Room Air 01/04/24 20:40 Oxygen Flow Rate 0 01/04/24 20:37 Pain Level 0 01/04/24 20:37 Comment Pt declined VS 01/05/24 01:57 Allergies amitriptyline Allergy (Unverified 11/27/23 11:29) unknown codeine Allergy (Unverified 11/27/23 11:29) unknown dicyclomine Allergy (Unverified 11/27/23 11:29) unknown pregabalin (From Lyrica) Allergy (Unverified 11/27/23 11:29) Anaphylaxis Diet Orders Category Date Time Status Regular/Normal [DIET] Nutrition 01/05/24 Breakfast Active Diagnostics 01/05/24 Range/Units 05:35 Sodium Pending Potassium Pending Chloride Pending Carbon Dioxide Pending Anion Gap Pending BUN Pending Creatinine Pending Est GFR (CKD-EPI 2020) Pending Glucose Pending Calcium Pending Intake and Output - 24 Hour Total 01/04/24 20:29 thru 01/04/24 20:37 Weight 63.503 kg Falls Risk Assessment History of Falls No History 01/04/24 20:40 Contributing Factors Confusion 01/04/24 20:40 Ambulatory Aids Uses ambulatory device 01/04/24 20:40 Tubes/Lines None 01/04/24 20:40 Gait Evaluation No gait disturbance 01/04/24 20:40 Cognition Cognitive impairment 01/04/24 20:40 Fall Total Score 33 01/04/24 20:40 Level of Risk Moderate Risk 01/04/24 20:40 Restraint Information Behavior Requiring Restraints/ Harm to Patient,Harm to Staff & Others Seclusion Date of Initiation 01/05/24 Time Restraints were Initiated 04:34 Note Pt attempting to elope, redirected multiple times by multiple staff members. Pt began pinching, smacking and stomping on staffs feet. Pt offered different environments, food, drink, and bathroom. Pt continued to be combative to staff. Pt then placed on bed, manually restrained with initiation of chemical restraints as order per Dr. Rosenberg. After each chemical restraint, staff attempted to free extremities, however pt continued to be combative to staff. Over an hour of being manually restrained went by with no effect, Dr. Rosenberg verbally ordered soft restraints @ 0434. Problems (Last Reviewed 01/05/24 @ 00:35 by Jose Eduardo Rosenberg) Osteoporosis (Chronic) Migraine (Chronic) Frequent UTI (Chronic) Dementia with behavioral disturbance (Acute) Notes 01/05/24 01:37 Nursing Notes by Katerina Soria Nursing Note: Pt is determined to get up out of bed. Pt is unsteady now on her feet due to the medications we gave her. This nurse was at bedside for a bit and now Payal is sitting with pt. Payal got patient up to walk around and patient attempted to go out the door. Pt to floor in wheelchair with Payal and security. Initialized on 01/05/24 01:37 - END OF NOTE 01/05/24 00:22 Nursing Notes by Katerina Soria Nursing Note: pt is now sleeping comfortably Initialized on 01/05/24 00:22 - END OF NOTE 01/04/24 23:54 Nursing Notes by Katerina Soria Nursing Note: pt and spouse on with telepsych Initialized on 01/04/24 23:54 - END OF NOTE 01/04/24 22:24 Nursing Notes by Katerina Soria Nursing Note: Assumed care of pt. Report from Herman. Pt standing at door way at bedside. MD going to see them to see what they wish to do next. Initialized on 01/04/24 22:24 - END OF NOTE v v v v v v v v v Sending and/or Receiving Nurses: Please use comment section below to note any information pertinent to the patient hand-off not included above. Information / Comments: Pt arrived to ED for the second time this week for agitation and combative behavior towards . Pt has advancing Alzheimer's disease and is traveling to [place] from [place] currently. She is to be driving back to [place] on Sunday; howver has become increasingly hard to care for by . Pt A&Ox1, aggressive to staff; pulling fingers back and pinching. She has had a 1:1 since left ED. She was given Zyprexa and Clonazepam. She is being admitted as a SwingBed II pt, no IV access and has been declining vital signs. U/A needed, however has not used the restroom. Report received from: Katerina Soria RN
[2024-01-05 05:34] VITALS: PULSE 82; RESP 18; TEMP 36.2
--- NOTE | 2024-01-05 08:50 | PDOC.CMIN ---
Date of service: 01/05/24 Time of Service: 08:50 Care Management Initial Assmt Initial Assessment Reason for Hospitalization: dementia with behavioral disturbances Functional Status/Living Situation Patient Presentation: Yodit was lying in bed asleep when CM went to see her. She had been medicated during the night as she was aggressive and combative and slept most of the day. Her Ghanshyam had just arrived to visit and CM took the opportunity to converse with him about Yodit and about her medical history. Yodit first began to exhibit mild symptoms of dementia about 8 or 9 years ago but it was slow to progress. Ghanshyam shared that for about the past year he has had to provide all of her personal care in addition to meal prep, shopping, etc. He believes she still knows who he is or at least recognizes his face. She also seems to recognize her children. Most of the time she has little memory about places and events. For example, she denied knowing that they had a camp at [facility], but when they arrived, she recognized their home. Ghanshyam also informed CM that for the past few weeks, oYdit has been refusing her medication and has lost interest in eating and drinking. He stated that the agitation began when they were still in [place], but it was short lived and she was easily redirected. He said that for the first 5 or 6 weeks they were in [place] (arrived early November), she seemed really happy and was enjoying being with her family. For the last couple of weeks however, she has become more agitated and aggressive and confused. The night she came to the hospital she had been trying to escape and was physically aggressive towards Ghanshyam for hours. Ghanshyam shared how difficult this process has been for everyone - Yodit, Ghanshyam and their whole family. He admitted he does not know what to do. CM discussed Palliative Care and hospice and elucidated the differences. Ghanshyam requested a Palliative Care consult. He reported that he feels it could be very helpful in clarifying their situation and goals of care. He wants to take her home but recognizes his ability to safely care for her alone is becoming more challenging. A Palliative Care consult was placed and hopefully someone will be able to meet with Ghanshyam and Kandace (if able) on Sunday. Town of Residence: [place] Resides with: Spouse ( Jay) Significant Other/Family: Local (has 3 children; 2 live in [place] and one lives in [place]) Natural Supports: and family Instrumental Activities of Daily Living (ADLs): Requires support Medications Medication Management: Issues/Barriers with Other (refusing to take her medications) Advance Directives Advance Directives: Do you have an Advance Directive: N 11/27/17 16:05 AD On File at [facility]: N 11/27/17 16:05 Date Asked 01/03/24 01/03/24 10:39 AD Date Reviewed COLST On File at [facility] No 01/04/24 20:32 COLST Date Scanned Code Status Resuscitation Status DNR/DNI Portal Pt does not currently have a portal and education provided: No Portal Education: Other (from out of state) Insurance Coverage/Financial Issues Insurance: [facility] Medicare Replacement Plan Care Team Visit Care Team Role Provider Type Unknown Unknown Primary Care Provider STAFF PHYSICIAN Gladis Regalado Other Providers REG OCCUPATIONAL THERAPIST InPatient Primo Vyas Other Providers OTHER [facility] Provider PHYSICIANS DAMAGE APPRAISER Jose Eduardo Rosenberg Admit Provider NON-[facility] STAFF PHYSICIAN Attending Provider Discharge Potential Discharge Needs: PCP F/U Appt and Other (Palliative care) Anticipated Barriers to Discharge: Medical Status Patient/Family Education Needs: Review discharge instructions, discuss Ask Me Three Transportation: Other (to be determined by disposition) Plan: Yodit was admitted with dementia with behavioral disturbances. She was agitated and combative and her was unable to safely care for her so brought her to the ED. Her discharge plan is unclear at this time. She had a telepsych screening in the ED and medication suggestions were made and implemented. CM will follow and continue to assess for discharge planning concerns.c PFSH All Active Problems (Updated 01/05/24 @ 00:40 by Jose Eduardo Rosenberg) Osteoporosis (Chronic) Migraine (Chronic) Frequent UTI (Chronic) Dementia with behavioral disturbance (Acute) Agitation (Acute) Dementia (Chronic) Abdominal pain (Acute) Altered mental status (Acute) Dementia (Chronic) UTI (urinary tract infection) (Acute) Social History Smoking/Tobacco Use Status: Former Tobacco Use Smoking risk assessment performed?: Yes Substance use type: does not use Additional Social history: PT is unable to respond SDOH(Care Management) Screening Will the Patient Participate in the Screening?: Unable to obtain
[2024-01-05] MEDS: QUEtiapine 25 MG TAB 12.5 MG PO (15:25)
--- NOTE | 2024-01-05 15:50 | PT.INNT ---
PT Notes Visit Reasons: Dementia with behavioral problems Patient agitated and currently unable to participate in PT
[2024-01-06] MEDS: Aspirin 81 MG CHEW PO (08:21)
[2024-01-06] MEDS: QUEtiapine 25 MG TAB 12.5 MG PO ×2 (08:21→20:48)
[2024-01-06 08:33] VITALS: BP 94/60; PULSE 75; RESP 17; TEMP 36.4; O2SAT 96
--- NOTE | 2024-01-06 10:53 | W.PM.PROGNOT ---
Date of Service Date of service: 01/06/24 Time of Service: 10:57 Assessment and Plan Assessment and plan (1) Dementia with behavioral disturbance: Start date: 01/05/24 Status: Acute Assessment and plan: -previous uncontrollable at home with patient not able to take care of patient. - wants to take her home to [place] by car next week but this is unreasonable. - has indicated that given her worsening behaviors, declines PO intake and weight loss that he would like to speak with Palliative, consult has been placed (2) Frequent UTI: Status: Chronic Assessment and plan: -Patient has no evidence of UTI presently to exacerbate her mental status. She did have a UTI in November which is cleared clinically. Continue monitor for recurrent infection with hygiene most likely not adequate. (3) Migraine: Status: Chronic Assessment and plan: No evidence of recurrent migraine but continue outpatient medical therapy on a daily basis for prophylaxis. Patient compliance with oral therapy may be a problem. Qualifiers: Migraine type: periodic headache syndrome Intractability: not intractable Qualified Code(s): G43.C0 - Periodic headache syndromes in child or adult, not intractable (4) Osteoporosis: Status: Chronic Assessment and plan: Continue outpatient medical therapy. The medication needs to be updated with Fosamax being given daily by the method. Most likely should be weekly. Pharmacy can review this medication and directions. Qualifiers: Osteoporosis type: age-related Presence of current pathological fracture: without current pathological fracture Qualified Code(s): M81.0 - Age-related osteoporosis without current pathological fracture Subjective Subjective Interval history since last seen: Patient resting comfortably and does not appear to be agitated at this time. Exam Narrative Exam Narrative: Elderly female laying in bed in no acute distress, wakes to verbal stimuli, not oriented to person place or time, heart regular rhythm, lungs clear to auscultation bilaterally, abdomen soft, nontender, nondistended Objective Last Vital Signs Temp 97.5 F L 01/06/24 08:33 Pulse 75 01/06/24 08:33 Resp 17 01/06/24 08:33 BP 94/60 L 01/06/24 08:33 Pulse Ox 96 01/06/24 08:33 Time Spent with Patient Time Spent with Patient: >50 minutes Time was spent: preparing to see the patient(eg.review tests), obtaining and/or reviewing separately otained hiistory, ordering medications,tests, procedures, referring, communicating with other health career guidance counselor, indepentently interpreting results, counseling the patient and care coordination
--- NOTE | 2024-01-06 11:33 | PT.INNT ---
PT Notes Visit Reasons: Dementia with behavioral problems Pt. continues to be quite agitated and combative unable to perform PT assessment until behavior better managed
[2024-01-06] MEDS: Loratidine 10 MG TAB PO (14:54)
[2024-01-06] MEDS: Haloperidol 5 MG/ML VIAL 2 MG IM (20:48)
[2024-01-06] MEDS: Donepezil 5 MG TAB 10 MG PO (20:50)
[2024-01-06] MEDS: diphenhydrAMINE 50 MG/ML VIAL 25 MG IM (22:41)
[2024-01-06] MEDS: OLANZapine 10 MG VIAL 5 MG IM (22:41)
[2024-01-06] MEDS: Water,Injection,Sterile 10 ML VIAL (22:41)
--- NOTE | 2024-01-07 08:54 | PCNE_ITS ---
Date of service: 01/07/24 Time of Service: 15:00 History of Present Illness History of Present Illness Chief Complaint: Agitated dementia Narrative: From H and P his is a 73-year-old lady with end-stage dementia now with behavioral abnormality. On controllable at home with patient not able to take care of patient. He does want to take her home to [place] by car next week but this is unreasonable. Patient considering local inpatient hospitalization for stabilization prior to transfer back to [place] and comfort measures should be considered if patient is end-stage and not controllable. Another option is long-term inpatient or shelter care with the family to visit but not be the primary caregivers. She was admitted to level 2 for maintenance care and adjustment of oral meds that she has not taken all manage therefore she was admitted for adjustment of meds using IM route as needed. She is requiring soft restraints but will be released as soon as she is controlled with medical therapy. Aricept is not appropriate at this time and may be discontinued after discussion with family. Prognosis is poor. Patient is a DNR/DNI. Interim history Family has decided that she needs to go back to [place]. There was some concern about she and her traveling alone that great distance. The plan is for to take her to [facility] and then niece and other relative will go with her by playing down to [place]. The niece is well versed in people with Alzheimer's and knows how to control her. The hospitalist has provided a couple of lorazepam to help her during transit. Her will then with a nephew drive the car back to [place]. He has to first about close at their camp. He is very comfortable with this plan and voices how much he loves his . He feels that she will do better back with her regular neurologist Consults Consult date: 01/07/24 Requesting physician: Ki Cleary Assessment and Plan Assessment and plan (1) Agitation: Status: Acute (2) Dementia: Status: Chronic (3) Advanced care planning/counseling discussion: Status: Acute Assessment and plan: has done a great job organizing a good plan to get both he and his back to [place]. It sounds safe, he has people involved who are well versed in Alzheimer's and knows how to care for her and wrote. I commended him on this. At this point she is a DNR/DNI. Review of Systems Narrative: She was not able to give me any review of systems or history. She would look to her when I asked questions. PFSH All Active Problems (Updated 01/10/24 @ 11:18 by Rosetta Dave MD, DC) Advanced care planning/counseling discussion (Acute) Osteoporosis (Chronic) Migraine (Chronic) Frequent UTI (Chronic) Dementia with behavioral disturbance (Chronic) Agitation (Acute) Dementia (Chronic) Abdominal pain (Acute) Altered mental status (Acute) Dementia (Chronic) UTI (urinary tract infection) (Acute) Social History Smoking/Tobacco Use Status: Former Tobacco Use Smoking risk assessment performed?: Yes Substance use type: does not use Additional Social history: PT is unable to respond Exam Narrative Exam Narrative: She sits in the bed with a vacant look. She looks to her every time I ask her a question. Her heart is regular. Her breathing is good. She is thin but does not look emaciated. Results Last Vital Signs Temp 97.5 F L 01/06/24 08:33 Pulse 75 01/06/24 08:33 Resp 17 01/06/24 08:33 BP 94/60 L 01/06/24 08:33 Pulse Ox 96 01/06/24 08:33 Labs 01/05/24 05:35 Labs: Laboratory Tests 01/03/24 10:56 Hct 34.9 L Creatinine 1.1 H Total Protein 6.3 L Albumin 3.3 L abd/pelvis CT MPRESSION: No acute abdominal or pelvic process.
[2024-01-07] MEDS: Aspirin 81 MG CHEW PO (09:33)
[2024-01-07] MEDS: Loratidine 10 MG TAB PO (09:33)
--- NOTE | 2024-01-07 09:33 | PDOC.CMPRO ---
Date of service: 01/07/24 Time of Service: 09:33 Care Management Progress Note Discharge Potential Discharge Needs: PCP F/U Appt Anticipated Barriers to Discharge: Other (mental status) Patient/Family Education Needs: Review discharge instructions, discuss Ask Me Three Transportation: Private vehicle Plan: Kandace will likely be discharged home with her . His plan is to have her niece fly to [place] with her and he will follow in the car. She will follow up with her community providers and plan of care. SDOH(Care Management) Screening Will the Patient Participate in the Screening?: Unable to obtain
[2024-01-07] MEDS: QUEtiapine 25 MG TAB 12.5 MG PO (09:34)
[2024-01-07 09:57] VITALS: BP 102/50; PULSE 69; RESP 18; TEMP 36.1; O2SAT 97
--- NOTE | 2024-01-07 11:09 | PT.INNT ---
PT Notes Visit Reasons: Dementia with behavioral problems PT orders received for consultation. Patient observed to be ambulating independently throughout the morning. Discussed with MD, and will hold on PT consultation at this time.
--- NOTE | 2024-01-07 15:25 | W.PM.DS.N ---
Date of service: 01/07/24 Time of Service: 15:26 DS: Diagnosis Discharge Diagnosis (1) Dementia with behavioral disturbance: Status: Chronic Asessment and Plan: severe progressive dementia w/ behaviorial disturbances including agitation w/ physical aggression. Patient was begun on Seroquel 12.5 mg bid which can be titrated up to 25 mg bid. alprazolam 0.25 mg bid may be given as needed for acute agitation/outbursts (2) Frequent UTI: Status: Chronic Asessment and Plan: no evidence for acute UTI at this time (3) Migraine: Status: Chronic (4) Osteoporosis: Status: Chronic Discharge Plan Disposition Patient Disposition: Home Condition: Fair Discharge Details Reason For Visit: Dementia with behavioral problems Admit Date/Time: 01/05/24 00:40 Admit Provider: Jose Eduardo Rosenberg Attending Provider: Jose Eduardo Rosenberg Primary Care Provider: Unknown,Unknown Hospital Course Hospital Course: 73-year-old female with a history of frequent UTIs who has had progressive dementia with behavioral outbursts. Patient was brought to emergency department 01/05/2024 after the patient and her had come to [place] for the summer to visit family and patient become combative and aggressive with the family. Patient had been seen in the ED earlier in the day prior to admission was prescribed Zyprexa and clonazepam. But she was brought back to the emergency department after becoming more combative and physical with family. She did require physical restraints and was given parenteral Zyprexa. She was also given Ativan and Benadryl. And eventually 4 point limb restraints were removed. Telepsychiatry consultation was obtained while the patient was in the ED and they suggested beginning Seroquel 12.5 mg twice daily and if tolerated titrate upwards to 25 mg twice daily. Patient did have another flareup of her behavior on the evening of 01/06/2024 and had to be restrained and given parenteral medications. On the morning of 01/07/2024 she was much calmer and responsive and was taking her Seroquel willingly. Her behavior is now more like her baseline and her was requesting to bring her home to [place]. Palliative care consult was requested and did see her on the day of discharge on 01/07/2024. Please see Dr. Dave's note for details. Patient is discharged on Seroquel 12.5 mg twice a day which may be titrated up to 25 mg twice daily as needed. Short course of alprazolam was ordered 0.25 mg p.o. twice daily as needed severe agitation. Patient will be accompanied by her niece,Shani Sinha, whom I am told is an TRAVEL NURSE who has had a lot of experience with working with geriatric psychiatric patients and feels comfortable completing her aunt on a flight back to [place] tomorrow. Patient will follow-up with her neurologist in [place] Dr. Juan J Gallardo. CT of head w/out contrast was done on admission which showed no acute findings. Home Meds and New Rx's Prescriptions: New quetiapine 25 mg Tablet 12.5 mg PO DIRECTED Qty: 14 0RF Rx Instructions: 1/2 tablet by mouth every morning and repeat dose every 4 pm alprazolam 0.25 mg tablet 0.25 mg PO BID PRNQty: 14 0RF Rx Instructions: give one tablet twice a day as needed for acute agitation Continued donepezil 10 MG tablet 10 mg PO HS gabapentin 300 MG capsule 200 mg PO HS aspirin [Aspirin Low-Strength] 81 MG tablet,chewable 81 mg PO DAILY alendronate 70 mg Tablet 70 mg PO DAILY Qulipta 30 mg Tablet 30 mg PO DAILY Discontinued phenazopyridine [Pyridium] 100 mg tablet 100 mg PO TID cephalexin 500 mg tablet 500 mg PO TID Qty: 21 0RF Rx Instructions: Take as directed to treat UTI phenazopyridine [Pyridium] 100 mg tablet 100 mg PO BID Qty: 6 0RF chlorpheniramine-pseudoephed 4-60 mg Tablet 1 tab PO DAILY olanzapine [Zyprexa] 2.5 mg tablet 2.5 mg PO QHS Qty: 10 0RF Discharge Instructions Instructions: Dementia (including Alzheimer disease), Caring for someone with Alzheimer disease or dementia Additional Instructions: take Seroquel 12.5 mg (1/2 of 25 mg tablet) twice a day morning and afternoon, If needed you may take alprazolam 0.25 mg up to twice a day as needed for breakthrough severe agitation Stop Zyprex (olanzapine) and stop pseudophed and pyridium Stand Alone Forms: Nursing Discharge Form Activity:: Activity as Tolerated Equipment/Supplies:: No Equipment Needed Diet:: Normal Diet Discharge Orders Discharge Orders: Discharge Order (Routine); Ordered 01/07/24 Ordered By: Juwan Smith DS: Summary Time Spent with Patient providing and/or coordinating discharge services: Greater than 30 minutes Specific discharge activities: Interview/exam of patient; review of discharge instructions, completion of prescriptions/discharge instructions; discussion w/ nursing and CM; documentation of hospital visit Status at Discharge Functional status at discharge: uses cane/walker Overall status at discharge: patient is back to baseline Mental Status: other Speech and Movement: speech and movement normal Mood: other Affect: indifferent Quality:SDOH Health Related Social Needs: No Data to Display Exam Narrative Exam Narrative: Ro is lying in bed, she is alert and pleasant although demented and could not participate in discussion w/ her and I regarding her discharge plans. Psych Mental Status: other Speech and Movement: speech and movement normal Mood: other Affect: indifferent DS: Data Vitals/I&O Vitals and I&O: Vital Signs Temperature 36.1 C L 01/07/24 09:57 Temperature Source Temporal Artery Scan 01/07/24 09:57 Pulse 69 01/07/24 09:57 Respiratory Rate 18 01/07/24 09:57 Respiratory Effort Normal, Non-Labored 01/07/24 07:40 Respiratory Depth Normal 01/07/24 07:40 Respiratory Pattern Normal 01/07/24 07:40 Blood Pressure 102/50 L 01/07/24 09:57 Blood Pressure Position Sitting 01/04/24 20:40 Pulse Oximetry 97 01/07/24 09:57 Oxygen Delivery Method Room Air 01/07/24 09:57 Oxygen Flow Rate 0 01/07/24 09:57 Pain Level 0 01/06/24 08:33 Comment Pt declined VS 01/05/24 01:57 Intake & Output 01/06/24 01/07/24 01/07/24 23:59 11:59 23:59 Intake Total 480 / 720 Output Total 150 / 150 Balance 480 / 320 -150 / -150 Intake: Oral 480 / 720 Output: Urine 150 / 150 Other: Urine Color Yellow Yellow Yellow Urine Appearance Clear Clear Urine Odor Strong Voiding Methods Toilet Bedside Commode Toilet PFSH All Active Problems (Updated 01/07/24 @ 15:39 by Juwan Smith MD) Osteoporosis (Chronic) Migraine (Chronic) Frequent UTI (Chronic) Dementia with behavioral disturbance (Chronic) Agitation (Acute) Dementia (Chronic) Abdominal pain (Acute) Altered mental status (Acute) Dementia (Chronic) UTI (urinary tract infection) (Acute) Social History Smoking/Tobacco Use Status: Former Tobacco Use Smoking risk assessment performed?: Yes Substance use type: does not use Additional Social history: PT is unable to respond Time Spent with Patient Time Spent with Patient: <45 minutes Time was spent: preparing to see the patient(eg.review tests), ordering medications,tests, procedures, referring, communicating with other health specialist wound care, indepentently interpreting results, counseling the patient () and care coordination
--- NOTE | 2024-01-07 17:16 | PDOC.CMDIS ---
Date of service: 01/07/24 Time of Service: 17:17 LACE Index Scoring Tool Questions: Length of Stay (in days): 2 Was the patient admitted via the E.D.?: Yes Comorbidities: Dementia E.D. Visits: 3 Answers: Total Score: 11 Risk of Readmission: High Risk Care Management Discharge Plan Reason for Hospitalization: dementia Discharge Plan: Yodit will be discharge into her 's care. He will drive her to her niece's home and tomorrow they plan to fly back to [place]. Yodit will follow up with her PCP, neurologist and other providers in [place]. Patient/Family Education Needs: Review discharge instructions, discuss Ask Me Three [facility] Health Related Social Needs: No Data to Display
== END 2024-01-07 16:29 | disposition home or self-care (01) | DRG 884 ==
LOC: ER 01-05 00:47 → MS 01-05 06:44
PROVIDERS: Admitting Provider Family Medicine; Emergency Provider Physician Assistant; Visit Provider Family Medicine
DX: F03.C11 Unspecified dementia, severe, with agitation (principal); M81.0 Age-related osteoporosis without current pathological fracture; Z78.1 Physical restraint status; Z87.891 Personal history of nicotine dependence; Z79.899 Other long term (current) drug therapy; G43.C0 Periodic headache syndromes in child or adult, not intractable; Z87.440 Personal history of urinary (tract) infections
CPT/HCPCS: 00123; 80048; 99285; 99223; 99233; 99238; J1200; J1630; J2060; J2359